=== PATIENT | male | born 1935 | race Caucasian/White ===

== ENCOUNTER → 2016-08-27 | Outpatient (CLI) | payer MEDICARE, BC ==
[~2016-08-27] MED LIST: AMLO5 PO; ARIC5TAB PO; COUM10TA PO; DONE10TA7 PO; FURO1TAB62 PO; HYZA50TA2 PO; IRON; KCL; LORA-392 PO; NYST500000 PO; SPIR25 PO; TAMS0.4C4 PO; ZETI10TA5 PO; [UNRECOGNIZED DRUG - CODE] SQ
[2016-08-27 09:10] LABS: HEMATOCRIT 35.6 % (39.0-51.0); MEAN CELL VOLUME 87.7 FL (80.0-100.0); MEAN CORPUSCULAR HEMOGLOBIN 30.4 PG (27.0-34.0); MEAN CORPUSCULAR HGB CONC 34.7 % (32.0-36.0); PLATELET COUNT 176 TH/MM3 (150-450); RED BLOOD COUNT 4.06 MIL/MM3 (4.50-5.90); RED CELL DISTRIBUTION WIDTH 13.9 % (11.6-17.2); REVIEW FLAG FINAL; WHITE BLOOD COUNT 4.8 TH/MM3 (4.0-11.0)
[2016-08-27 09:34] LABS: ALKALINE PHOSPHATASE 74 U/L (45-117); ALT (GPT) 21 U/L (12-78); ANION GAP 7 MEQ/L (5-15); AST (GOT) 24 U/L (15-37); BICARBONATE 30.3 MEQ/L (21.0-32.0); BLOOD UREA NITROGEN 28 MG/DL (7-18); CHLORIDE 100 MEQ/L (98-107); GLOMERULAR FILTRATION RATE 57 ML/MIN (>89); GLUCOSE,FASTING 100 MG/DL (74-99); HDL CHOLESTEROL 53.7 MG/DL (40.0-60.0); LDL CHOLESTEROL 96 MG/DL (0-99); POTASSIUM 4.7 MEQ/L (3.5-5.1); SODIUM (NA) 137 MEQ/L (136-145); TOTAL BILIRUBIN ADULT 0.6 MG/DL (0.2-1.0)
[2016-08-27 21:30] LABS: HEMOGLOBIN A1a 0.7 %; HEMOGLOBIN A1b 1.6 %; HEMOGLOBIN Ao 86.4 %; HEMOGLOBIN LA1C 1.8 %; HEMOGLOBIN P3 5.1 %
== END ==
LOC: PLAB 07:06
PROVIDERS: ATTEND Urology
DX: C61 Malignant neoplasm of prostate (principal); I10 Essential (primary) hypertension; I50.20 Unspecified systolic (congestive) heart failure; F03.90 Unspecified dementia, unspecified severity, without behavioral disturbance, psychotic disturbance, mood disturbance, and anxiety; Z95.2 Presence of prosthetic heart valve
CPT/HCPCS: 36415; 80053; 80061; 83036; 84153; 85027

== ENCOUNTER → 2016-11-12 | Outpatient (CLI) | payer MEDICARE, BC ==
[~2016-11-12] MED LIST changes: -AMLO5 PO; -ARIC5TAB PO
== END ==
LOC: PLAB 13:51
PROVIDERS: ATTEND Family Medicine
DX: F03.90 Unspecified dementia, unspecified severity, without behavioral disturbance, psychotic disturbance, mood disturbance, and anxiety (principal)
CPT/HCPCS: 36415; 82607; 84443

== ENCOUNTER → 2016-12-29 | Outpatient (CLI) | payer MEDICARE, BC | LOC: PLAB 09:32 | PROVIDERS: ATTEND Urology | DX: C61 Malignant neoplasm of prostate (principal) | CPT/HCPCS: 36415; 84153 ==

== ENCOUNTER → 2017-02-24 | Outpatient (CLI) | payer MEDICARE, BC ==
[~2017-02-24] MED LIST changes: +DONE5TAB7 PO
[2017-02-24 12:27] LABS: HEMATOCRIT 34.3 % (39.0-51.0); MEAN CELL VOLUME 89.4 FL (80.0-100.0); MEAN CORPUSCULAR HEMOGLOBIN 30.2 PG (27.0-34.0); MEAN CORPUSCULAR HGB CONC 33.8 % (32.0-36.0); PLATELET COUNT 195 TH/MM3 (150-450); RED BLOOD COUNT 3.83 MIL/MM3 (4.50-5.90); RED CELL DISTRIBUTION WIDTH 13.7 % (11.6-17.2); REVIEW FLAG FINAL; WHITE BLOOD COUNT 5.8 TH/MM3 (4.0-11.0)
[2017-02-24 13:09] LABS: ANION GAP 6 MEQ/L (5-15); AST (GOT) 26 U/L (15-37); BICARBONATE 30.7 MEQ/L (21.0-32.0); BLOOD UREA NITROGEN 23 MG/DL (7-18); CHLORIDE 100 MEQ/L (98-107); GLOMERULAR FILTRATION RATE 62 ML/MIN (>89); POTASSIUM 4.5 MEQ/L (3.5-5.1); SODIUM (NA) 137 MEQ/L (136-145)
[2017-02-24 13:28] LABS: ALKALINE PHOSPHATASE 66 U/L (45-117); ALT (GPT) 23 U/L (12-78); GLUCOSE,FASTING 91 MG/DL (74-99); LDL CHOLESTEROL 92 MG/DL (0-99); TOTAL BILIRUBIN ADULT 0.5 MG/DL (0.2-1.0)
== END ==
LOC: PLAB 08:05
PROVIDERS: ATTEND Family Medicine
DX: I10 Essential (primary) hypertension (principal); E78.5 Hyperlipidemia, unspecified; F03.90 Unspecified dementia, unspecified severity, without behavioral disturbance, psychotic disturbance, mood disturbance, and anxiety; I95.9 Hypotension, unspecified
CPT/HCPCS: 36415; 80053; 80061; 85027

== ENCOUNTER → 2017-03-10 | Outpatient (CLI) | payer MEDICARE, BC ==
[~2017-03-10] MED LIST changes: -DONE10TA7 PO; -HYZA50TA2 PO; -SPIR25 PO
== END ==
LOC: PLAB 13:28
PROVIDERS: ATTEND Urology
DX: C61 Malignant neoplasm of prostate (principal)
CPT/HCPCS: 36415; 84153

== ENCOUNTER → 2017-03-20 | Outpatient (CLI) | payer MEDICARE, BC ==
[2017-03-20 13:57] LABS: BICARBONATE 31.8 MEQ/L (21.0-32.0); POTASSIUM 4.8 MEQ/L (3.5-5.1)
== END ==
LOC: PLAB 09:26
PROVIDERS: ATTEND Internal Medicine Interventional Cardiology
DX: I50.9 Heart failure, unspecified (principal)
CPT/HCPCS: 36415; 80048

== ENCOUNTER → 2017-05-19 | Outpatient (CLI) | payer MEDICARE, BC ==
[2017-05-19 17:33] LABS: BICARBONATE 30.1 MEQ/L (21.0-32.0); CALCIUM 8.7 MG/DL (8.5-10.1); CREATININE 1.04 MG/DL (0.60-1.30)
== END ==
LOC: PLAB 15:14
PROVIDERS: ATTEND Internal Medicine Interventional Cardiology
DX: R60.9 Edema, unspecified (principal)
CPT/HCPCS: 36415; 80048

== ENCOUNTER 2017-07-06 14:33 | Observation (INO) | payer MEDICARE, BC ==
[~2017-07-06] VITALS: Ht 185.4 cm; Wt 95.9 kg
[~2017-07-06 14:33] MED LIST changes: +EZET10 PO; -ZETI10TA5 PO
[2017-07-06 14:35] VITALS: BP 159/70; PULSE 62; RESP 16; TEMP 97.9; O2SAT 96
[2017-07-06 15:27] LABS: AUTOMATED NEUTROPHIL # 5.3 TH/MM3 (1.8-7.7); BASOPHIL % 0.7 % (0.0-2.0); EOSINOPHIL # 0.2 TH/MM3 (0-0.4); EOSINOPHIL % 2.3 % (0.0-4.0); HEMATOCRIT 37.7 % (39.0-51.0); HEMO FLAGS DIFF FINAL; LYMPH % 9.2 % (9.0-44.0); LYMPHOCYTE # 0.6 TH/MM3 (1.0-4.8); MEAN CELL VOLUME 88.6 FL (80.0-100.0); MEAN CORPUSCULAR HEMOGLOBIN 29.8 PG (27.0-34.0); MEAN CORPUSCULAR HGB CONC 33.7 % (32.0-36.0); MONO % 9.8 % (0.0-8.0); PLATELET COUNT 188 TH/MM3 (150-450); RED BLOOD COUNT 4.26 MIL/MM3 (4.50-5.90); RED CELL DISTRIBUTION WIDTH 13.8 % (11.6-17.2); WHITE BLOOD COUNT 6.8 TH/MM3 (4.0-11.0)
[2017-07-06 15:30] LABS: PROTHROMBIN TIME - PATIENT 30.5 SEC (9.8-11.6)
[2017-07-06 15:58] LABS: ANION GAP 5 MEQ/L (5-15); BICARBONATE 28.7 MEQ/L (21.0-32.0); BLOOD UREA NITROGEN 24 MG/DL (7-18); CHLORIDE 100 MEQ/L (98-107); GLOMERULAR FILTRATION RATE 63 ML/MIN (>89); MAGNESIUM 2.4 MG/DL (1.5-2.5); SODIUM (NA) 134 MEQ/L (136-145)
[2017-07-06 16:06] LABS: CREATINE KINASE 41 U/L (39-308)
--- NOTE | 2017-07-06 16:32 | RADRPT ---
EXAM DATE/TIME: 07/06/2017 15:23 [place] COMPARISON: No previous studies available for comparison. INDICATIONS : Chest pain. MEDICAL HISTORY : Congestive heart failure. Hypertension SURGICAL HISTORY : aortic valve ENCOUNTER: Initial ACUITY: 1 day PAIN SCORE: 7/10 LOCATION: Bilateral chest FINDINGS: PA and lateral views of the chest demonstrate the lungs to be symmetrically aerated without evidence of mass, infiltrate or effusion. The cardiomediastinal contours are unremarkable. Osseous structure s are intact. Median sternotomy wires. Prosthetic heart bowel. Anchoring devices overlying the right humeral head. CONCLUSION: No acute disease. Finesse Victor Jr., MD on July 06, 2017 at 16:29 Board Certified Radiologist. This report was verified electronically.
[2017-07-06 16:52] VITALS: BP 150/70; PULSE 55; RESP 18; O2SAT 99
--- NOTE | 2017-07-06 17:21 | PD ---
HPI Chief Complaint: Chest Pain Time Seen by Provider: 16:47 Travel History International Travel<30 days: No Contact w/Intl Traveler<30days: No Traveled to known affect area: No History of Present Illness HPI 81-year-old male with history of aortic valve replacement 20 years ago and CHF presents to the emergency room for evaluation of left-sided chest pain for the past several hours. He has a history of dementia and provides much of his history. He first complained to his of chest pain around 11:00 today. Reports pain is constant but occasionally worsens. No radiation of symptoms. No associated shortness of breath, nausea, vomiting. He has a difficult time describing pain because history of dementia. The patient did exercise this morning for 1 hour. Denies worsening of symptoms with inspiration. He is on warfarin. He last went to see his cathode washer's, Dr. Tomlin, 8 days ago during which time his Lasix were increased from 20-40 mg daily. Patient's called the cathode washer office today to discuss chest pain symptoms and they're going to come to the emergency room for evaluation. PFSH Past Medical History Hx Anticoagulant Therapy: Yes Arthritis: Yes (Right shoulder) Asthma: No Autoimmune Disease: No Anxiety: No Depression: No Heart Rhythm Problems: No Cancer: Yes (Prostate) Cardiovascular Problems: Yes (mechanical aortic valve, CHF) High Cholesterol: No Chemotherapy: Yes (Has new implant every 90 days) Chest Pain: No Congestive Heart Failure: Yes COPD: No Cerebrovascular Accident: No Diabetes: No Diminished Hearing: No Endocrine: No Gastrointestinal Disorders: No GERD: No Genitourinary: No Headaches: No Hiatal Hernia: No Hypertension: Yes Immune Disorder: No Implanted Vascular Access Dvce: Yes Kidney Stones: No Musculoskeletal: No Neurologic: Yes (GBS) Psychiatric: No Reproductive: No Respiratory: No Immunizations Current: Yes Migraines: No Radiation Therapy: No Renal Failure: No Seizures: No Sickle Cell Disease: No Sleep Apnea: No Thyroid Disease: No Ulcer: No Tetanus Vaccination: > 5 Years Influenza Vaccination: No Past Surgical History Abdominal Surgery: No AICD: No Arteriovenous Shunt: No Body Medical Devices: Mechanical aortic valve Cardiac Surgery: Yes (Mechanical aortic valve) Ear Surgery: No Endocrine Surgery: No Eye Surgery: No Genitourinary Surgery: Yes (SCOPE) Gynecologic Surgery: No Insulin Pump: No Joint Replacement: No Neurologic Surgery: No Oral Surgery: No Pacemaker: No Thoracic Surgery: No Other Surgery: Yes Social History Alcohol Use: Yes (Rarely) Tobacco Use: No (Quit 1995) Substance Use: No Allergies-Medications (Allergen,Severity, Reaction): Coded Allergies: *MDRO Multi-Drug Resistant Organism (Verified Allergy, Unknown, 07/06/17) 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 Cleared per infection control. Reported Meds & Prescriptions Reported Meds & Active Scripts Active Donepezil 5 Mg Tab 5 Mg PO HS Ativan (Lorazepam) 0.5 Mg Tab 0.5 Mg PO ONCE PRN Reported Coumadin (Warfarin) 10 Mg Tab 10 Mg PO DAILY [iron27] Zetia (Ezetimibe) 10 Mg Tab 10 Mg PO DAILY Zoladex Inj (Goserelin Acetate) 10.8 Mg Impl 10.8 Mg SQ Q12W Administer into upper abdomen [Kcl] 10 Meq DAILY Lasix (Furosemide) 20 Mg Tab 20 Mg PO DAILY Tamsulosin (Tamsulosin HCl) 0.4 Mg Cap 0.4 Mg PO HS Review of Systems Except as stated in HPI: all other systems reviewed are Neg Physical Exam Narrative GENERAL: Well-nourished, well-developed male in no acute distress. Afebrile. SKIN: Focused skin assessment warm/dry. HEAD: Normocephalic. EYES: No scleral icterus. No injection or drainage. NECK: Supple, trachea midline. No JVD or lymphadenopathy. CARDIOVASCULAR: Regular rate and rhythm without murmurs, gallops, or rubs. RESPIRATORY: Breath sounds equal bilaterally. No accessory muscle use. GASTROINTESTINAL: Abdomen soft, non-tender, nondistended. Data Data Last Documented VS Vital Signs Date Time Temp Pulse Resp B/P (MAP) Pulse Ox O2 Delivery O2 Flow Rate FiO2 07/06/17 16:52 55 18 150/70 (96) 99 Room Air 07/06/17 14:35 97.9 Orders Orders Electrocardiogram (07/06/17 14:44) Basic Metabolic Panel (Bmp) (07/06/17 14:44) B-Type Natriuretic Peptide (07/06/17 14:44) Ckmb (Isoenzyme) Profile (07/06/17 14:44) Complete Blood Count With Diff (07/06/17 14:44) Magnesium (Mg) (07/06/17 14:44) Prothrombin Time / Inr (Pt) (07/06/17 14:44) Act Partial Throm Time (Ptt) (07/06/17 14:44) Troponin I (07/06/17 14:44) Chest, Pa & Lat (07/06/17 14:44) Admit Order (Ed Use Only) (07/06/17 ) Assignment Clerk / Telemetry [email or web address] (07/06/17 18:28) Vital Signs (Adult) Q4H (07/06/17 18:28) Diet Heart Healthy (07/06/17 Dinner) Activity Oob With Assistance (07/06/17 18:28) Notify Dr: Other (07/06/17 18:28) Labs Laboratory Tests Test 07/06/17 15:00 White Blood Count 6.8 TH/MM3 Red Blood Count 4.26 MIL/MM3 Hemoglobin 12.7 GM/DL Hematocrit 37.7 % Mean Corpuscular Volume 88.6 FL Mean Corpuscular Hemoglobin 29.8 PG Mean Corpuscular Hemoglobin Concent 33.7 % Red Cell Distribution Width 13.8 % Platelet Count 188 TH/MM3 Mean Platelet Volume 8.0 FL Neutrophils (%) (Auto) 78.0 % Lymphocytes (%) (Auto) 9.2 % Monocytes (%) (Auto) 9.8 % Eosinophils (%) (Auto) 2.3 % Basophils (%) (Auto) 0.7 % Neutrophils # (Auto) 5.3 TH/MM3 Lymphocytes # (Auto) 0.6 TH/MM3 Monocytes # (Auto) 0.7 TH/MM3 Eosinophils # (Auto) 0.2 TH/MM3 Basophils # (Auto) 0.0 TH/MM3 CBC Comment DIFF FINAL Differential Comment Prothrombin Time 30.5 SEC Prothromb Time International Ratio 3.0 RATIO Activated Partial Thromboplast Time 38.0 SEC Blood Urea Nitrogen 24 MG/DL Creatinine 1.11 MG/DL Random Glucose 89 MG/DL Calcium Level 8.5 MG/DL Magnesium Level 2.4 MG/DL Sodium Level 134 MEQ/L Potassium Level 4.0 MEQ/L Chloride Level 100 MEQ/L Carbon Dioxide Level 28.7 MEQ/L Anion Gap 5 MEQ/L Estimat Glomerular Filtration Rate 63 ML/MIN Total Creatine Kinase 41 U/L Troponin I LESS THAN 0.02 NG/ML B-Type Natriuretic Peptide 32 PG/ML MDM Medical Decision Making Medical Screen Exam Complete: Yes Emergency Medical Condition: Yes Medical Record Reviewed: Yes Differential Diagnosis ACS, pneumonia, unstable angina, pneumothorax, aortic valve dysfunction Narrative Course 81-year-old male with history of dementia, prostate cancer, aortic valve replacement, AAA, and CHF presents to the emergency room for evaluation of left- sided chest pain that started earlier today. Pain is constant without radiation or associated symptoms. Patient has history of dementia and provides most of the history. He has difficulty explaining quality of pain. Not worse with inspiration. Chest is nontender to palpation. Vital signs stable. Patient resting comfortably in bed. Chest x-ray is negative. EKG shows sinus bradycardia with a rate of 57 bpm. Signed off by my attending physician. CBC is unremarkable. BMP is essentially unremarkable troponin is less than 0.02. BNP is 32. I spoke to the patient's cathode washer, Dr. Tomlin , who recommends admission to the hospitalist service with consultation to his service. I spoke to Dr. Vinson who agrees to admit this patient to his service. Physician Communication Physician Communication I spoke to Dr. Tomlin who recommends admission to medical service with consultation to him. Diagnosis Primary Impression: Chest pain Qualified Codes: R07.9 - Chest pain, unspecified Admitting Information Admitting Physician Requests: Admit Condition: Stable Anita Saunders Jul 06, 2017 17:21
[2017-07-06] MEDS ORDERED: ACETAMINOPHEN 500 MG CPLT PO PRN (19:00)
[2017-07-06] MEDS ORDERED: SODIUM CHLORIDE 0.9% FLUSH 10 ML FLUSH IV FLUSH PRN (19:00)
[2017-07-06] MEDS ORDERED: ONDANSETRON HCL 4 MG/2 ML VIAL IV PUSH PRN (19:00)
--- NOTE | 2017-07-06 21:11 | MB ---
cc: ASHLEE TOMLIN DATE OF CONSULTATION 07/06/2017 HISTORY Mr. Larkin is an 81-year-old white male with a history of congestive heart failure, diastolic dysfunction, aortic valve replacement using a mechanical valve. After his picked him up from a restaurant he was complaining of right-sided chest discomfort of moderate severity. She brought him to the emergency room. He is now feeling better. He denies any shortness of breath. PAST MEDICAL HISTORY Positive for: 1. Congestive heart failure. 2. Diastolic mechanical aortic valve replacement. 3. History of hypertension. 4. Prostate cancer. 5. Degenerative joint disease both shoulders. 6. Abdominal aortic aneurysm 3.1 cm. 7. Hypertension. 8. Prostate cancer. 9. 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 11. Dyslipidemia. MEDICATIONS At home include: 1. Coumadin 10 milligrams five days and 7.5 milligrams two days. 2. Zetia. 3. Zoladex. 4. Chlor-Con. 5. Furosemide. 6. Multivitamin. 7. Iron. 8. Aricept. 9. Flomax. 10. Ativan. ALLERGIES None. SOCIAL HISTORY The patient does not smoke but used smoke in the past. He does not drink alcohol. He is and accompanied by his . FAMILY HISTORY Negative for heart disease. REVIEW OF SYSTEMS Otherwise negative. PHYSICAL EXAMINATION VITAL SIGNS: Blood pressure 150/70, pulse 55 and regular. HEENT: Negative. 2+ carotid upstrokes. No bruits. LUNGS: Clear. CARDIOVASCULAR: Heart regular with a 1/6 systolic ejection murmur. Obion aortic valve clicks. No gallop or rub. ABDOMEN: Soft. No bruits. EXTREMITIES: With mild edema, venous varicosities. 1-2+ distal pulses. NEUROLOGIC: Examination grossly nonfocal. EKG was reviewed and showed sinus bradycardia and mild nonspecific ST changes. LABORATORY DATA Hemoglobin 12.7. Potassium 4.0, creatinine 1.1. CK 41. Troponin less than 0.02. BNP 32. DIAGNOSES 1. Atypical chest pain. 2. Chronic diastolic congestive heart failure, class I. 3. Status post aortic valve replacement using mechanical valve. 4. Hypertension. 5. Dyslipidemia. 6. Abdominal aortic aneurysm. 7. Dementia. DISPOSITION Mr. Larkin presented with atypical right-sided chest discomfort. He will be monitored overnight with serial enzymes and EKGs. If he is ruled out for myocardial infarction, he will be discharged home tomorrow and I will see him back for followup in our office after discharge. We will continue his current medical program including anticoagulation with warfarin. His INR today was 2.8. The plan was discussed with the patient and his . Ashlee Tomlin MD OSusan/KK /6:30 PM /8:52 PM MTDMichael
[2017-07-06] MEDS: SODIUM CHLORIDE 0.9% FLUSH 10 ML FLUSH IV FLUSH SCH (21:15)
[2017-07-06 21:45] VITALS: BP 161/74; PULSE 68; RESP 18; TEMP 98; O2SAT 97
[2017-07-06 21:59] VITALS: PULSE 75
[2017-07-06 22:52] LABS: CREATINE KINASE 113 U/L (39-308)
[2017-07-06 23:06] LABS: CKMB 0.7 NG/ML (0.5-3.6)
[2017-07-06 23:30] VITALS: O2SAT 98
[2017-07-07] MEDS ORDERED: LORazepam 0.5 MG TAB PO PRN (02:00)
--- NOTE | 2017-07-07 02:04 | HHI.HP ---
[facility]ician No Primary Care Physician Admission Diagnosis chest pain Diagnoses: Travel History International Travel<30 Days: No Contact w/Intl Traveler <30 Da: No Traveled to Known Affected Are: No History of Present Illness 81-year-old male with a past medical history of CHF, diastolic dysfunction, aortic valve replacement, hypertension, prostate cancer and hyperlipidemia presents to the emergency department for right-sided chest pain. He is followed by Dr. Tomlin. The patient was reportedly complaining of right-sided chest discomfort of moderate severity and was brought to the emergency department for further evaluation. At the time of our interview, the patient has no complaints. He is confused but has dementia at baseline. He is able to tell me that he is in the state of [place] and his full name. He does not know time/date or his date of . He is not sure why he is in the hospital. Review of Systems Denies fever or chills Denies blurry vision, otorrhea, rhinorrhea Denies sore throat and cough No chest pain, palpitations, shortness of breath No abdominal pain Denies constipation/diarrhea/nausea/vomiting Denies muscle pain/weakness No rashes Past Family Social History Past Medical History Congestive heart failure Aortic valve replacement Hypertension Prostate cancer Degenerative joint disease of both shoulders AAA 3.1 cm Hyperlipidemia Past Surgical History Aortic valve replacement Reported Medications Reported Meds & Active Scripts Active Donepezil 5 Mg Tab 5 Mg PO HS Ativan (Lorazepam) 0.5 Mg Tab 0.5 Mg PO ONCE PRN Reported Coumadin (Warfarin) 10 Mg Tab 10 Mg PO DAILY [iron27] Zetia (Ezetimibe) 10 Mg Tab 10 Mg PO DAILY Zoladex Inj (Goserelin Acetate) 10.8 Mg Impl 10.8 Mg SQ Q12W Administer into upper abdomen [Kcl] 10 Meq DAILY Lasix (Furosemide) 20 Mg Tab 20 Mg PO DAILY Tamsulosin (Tamsulosin HCl) 0.4 Mg Cap 0.4 Mg PO HS Allergies: Coded Allergies: *MDRO Multi-Drug Resistant Organism (Verified Allergy, Unknown, 07/06/17) 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 Cleared per infection control. Family History No family history of coronary artery disease. Social History Remote history of smoking. No alcohol or illicit drugs. Physical Exam Vital Signs Vital Signs Date Time Temp Pulse Resp B/P (MAP) Pulse Ox O2 Delivery O2 Flow Rate FiO2 07/06/17 23:30 98 07/06/17 21:45 98.0 68 18 161/74 (103) 97 07/06/17 16:52 55 18 150/70 (96) 99 Room Air 07/06/17 16:46 51 18 96 Room Air 07/06/17 14:35 97.9 62 16 159/70 (99) 96 Physical Exam GENERAL: male wandering the halls SKIN: No rashes, ecchymoses or lesions. Cool and dry. HEAD: Atraumatic. Normocephalic. No temporal or scalp tenderness. EYES: Pupils equal round and reactive. Extraocular motions intact. No scleral icterus. No injection or drainage. ENT: Nose without bleeding, purulent drainage or septal hematoma. Throat without erythema, tonsillar hypertrophy or exudate. Uvula midline. Airway patent. NECK: Trachea midline. No JVD or lymphadenopathy. Supple, nontender, no meningeal signs. CARDIOVASCULAR: Regular rate and rhythm. 1/6 RAMONA RESPIRATORY: Clear to auscultation. Breath sounds equal bilaterally. No wheezes , rales, or rhonchi. GASTROINTESTINAL: Abdomen soft, non-tender, nondistended. No hepato-splenomegaly , or palpable masses. No guarding. MUSCULOSKELETAL: 2+ pitting lower extremity edema to the ankle. No calf tenderness. Negative Homans sign bilaterally. NEUROLOGICAL: Awake and alert. Cranial nerves II through XII intact. Motor and sensory grossly within normal limits. Normal speech. Oriented to state and self only. Laboratory Laboratory Tests Test 07/06/17 15:00 07/06/17 19:17 07/06/17 21:30 White Blood Count 6.8 Red Blood Count 4.26 Hemoglobin 12.7 Hematocrit 37.7 Mean Corpuscular Volume 88.6 Mean Corpuscular Hemoglobin 29.8 Mean Corpuscular Hemoglobin Concent 33.7 Red Cell Distribution Width 13.8 Platelet Count 188 Mean Platelet Volume 8.0 Neutrophils (%) (Auto) 78.0 Lymphocytes (%) (Auto) 9.2 Monocytes (%) (Auto) 9.8 Eosinophils (%) (Auto) 2.3 Basophils (%) (Auto) 0.7 Neutrophils # (Auto) 5.3 Lymphocytes # (Auto) 0.6 Monocytes # (Auto) 0.7 Eosinophils # (Auto) 0.2 Basophils # (Auto) 0.0 CBC Comment DIFF FINAL Differential Comment Prothrombin Time 30.5 Prothromb Time International Ratio 3.0 Activated Partial Thromboplast Time 38.0 Blood Urea Nitrogen 24 Creatinine 1.11 Random Glucose 89 Calcium Level 8.5 Magnesium Level 2.4 Sodium Level 134 Potassium Level 4.0 Chloride Level 100 Carbon Dioxide Level 28.7 Anion Gap 5 Estimat Glomerular Filtration Rate 63 Total Creatine Kinase 41 41 113 Troponin I LESS THAN 0.02 0.02 0.02 B-Type Natriuretic Peptide 32 Creatine Kinase MB 0.7 Result Diagram: 07/06/17 1500 07/06/17 1500 Caprini VTE Risk Assessment Caprini VTE Risk Assessment: Mod/High Risk (score >= 2) Caprini Risk Assessment Model Point Value = 1 Point Value = 2 Point Value = 3 Point Value = 5 Age 41-60 Minor surgery BMI > 25 kg/m2 Swollen legs Varicose veins or History of unexplained or recurrent spontaneous Oral contraceptives or hormone replacement Sepsis (< 1 month) Serious lung disease, including pneumonia (< 1 month) Abnormal pulmonary function Acute myocardial infarction Congestive heart failure (< 1 month) History of inflammatory bowel disease Medical patient at bed rest Age 61-74 Arthroscopic surgery Major open surgery (> 45 min) Laparoscopic surgery (> 45 min) Malignancy Confined to bed (> 72 hours) Immobilizing plaster cast Central venous access Age >= 75 History of VTE Family history of VTE Factor V Leiden Prothrombin [id number] Lupus anticoagulant Anticardiolipin antibodies Elevated serum homocysteine Heparin-induced thrombocytopenia Other congenital or acquired thrombophilia Stroke (< 1 month) Elective arthroplasty Hip, pelvis, or leg fracture Acute spinal cord injury (< 1 month) Prophylaxis Regimen Total Risk Factor Score Risk Level Prophylaxis Regimen 0-1 Low Early ambulation 2 Moderate Order ONE of the following: *Sequential Compression Device (SCD) *Heparin 5000 units SQ BID 3-4 Higher Order ONE of the following medications: *Heparin 5000 units SQ TID *Enoxaparin/Lovenox 40 mg SQ daily (WT < 150 kg, CrCl > 30 mL/min) *Enoxaparin/Lovenox 30 mg SQ daily (WT < 150 kg, CrCl > 10-29 mL/min) *Enoxaparin/Lovenox 30 mg SQ BID (WT < 150 kg, CrCl > 30 mL/min) AND/OR *Sequential Compression Device (SCD) 5 or more Highest Order ONE of the following medications: *Heparin 5000 units SQ TID (Preferred with Epidurals) *Enoxaparin/Lovenox 40 mg SQ daily (WT < 150 kg, CrCl > 30 mL/min) *Enoxaparin/Lovenox 30 mg SQ daily (WT < 150 kg, CrCl > 10-29 mL/min) *Enoxaparin/Lovenox 30 mg SQ BID (WT < 150 kg, CrCl > 30 mL/min) AND *Sequential Compression Device (SCD) Assessment and Plan Assessment and Plan Assessment/plan: 1. Atypical chest pain ACS rule out negative Patient seen by Dr. Tomlin, will follow-up in the office after discharge which is anticipated to be later today Resolved 2. Dementia Continue home medications 3. CHF Continue home Lasix Follow-up with Dr. Tomlin as above 4. Artificial aortic valve INR therapeutic at 3.0 Continue Coumadin 5. Hyperlipidemia Continue Zetia FEN Heart healthy diet Electrolytes: Monitor replete when necessary Coumadin Lisha Maldonado MD Jul 07, 2017 02:04
[2017-07-07 05:30] VITALS: BP 158/84; PULSE 74; RESP 18; TEMP 98.8; O2SAT 94
[2017-07-07 06:16] LABS: AUTOMATED NEUTROPHIL # 5.4 TH/MM3 (1.8-7.7); BASOPHIL % 0.7 % (0.0-2.0); EOSINOPHIL # 0.1 TH/MM3 (0-0.4); EOSINOPHIL % 2.1 % (0.0-4.0); HEMATOCRIT 35.6 % (39.0-51.0); HEMO FLAGS DIFF FINAL; LYMPH % 9.2 % (9.0-44.0); LYMPHOCYTE # 0.6 TH/MM3 (1.0-4.8); MEAN CELL VOLUME 88.8 FL (80.0-100.0); MEAN CORPUSCULAR HGB CONC 34.9 % (32.0-36.0); MONO % 9.6 % (0.0-8.0); NEUT % 78.4 % (16.0-70.0); PLATELET COUNT 175 TH/MM3 (150-450); RED BLOOD COUNT 4.01 MIL/MM3 (4.50-5.90); RED CELL DISTRIBUTION WIDTH 13.7 % (11.6-17.2); WHITE BLOOD COUNT 6.8 TH/MM3 (4.0-11.0)
[2017-07-07 06:45] LABS: BICARBONATE 25.8 MEQ/L (21.0-32.0); POTASSIUM 3.7 MEQ/L (3.5-5.1)
[2017-07-07 07:11] VITALS: BP 133/71; PULSE 62; RESP 18; TEMP 97.6; O2SAT 97
[2017-07-07 07:32] VITALS: PULSE 65
[2017-07-07] MEDS ORDERED: EZETIMIBE 10 MG TAB PO SCH (09:00)
[2017-07-07] MEDS ORDERED: FUROSEMIDE 20 MG TAB PO SCH (09:00)
[2017-07-07] MEDS: SODIUM CHLORIDE 0.9% FLUSH 10 ML FLUSH IV FLUSH SCH (09:23)
--- NOTE | 2017-07-07 11:22 | HHI.PR ---
Subjective Remarks On patient with atypical chest pain. Patient seen and examined. Patient with severe dementia. No family at the bedside. He denies any dizziness or lightheadedness. He denies any complaints of chest pain or shortness of breath. Denies any palpitations. Denies any nausea, vomiting or abdominal pain. Objective Vitals Vital Signs Date Time Temp Pulse Resp B/P (MAP) Pulse Ox O2 Delivery O2 Flow Rate FiO2 07/07/17 07:32 65 07/07/17 07:11 97.6 62 18 133/71 (91) 97 07/07/17 05:30 98.8 74 18 158/84 (108) 94 07/06/17 23:30 98 07/06/17 21:59 75 07/06/17 21:45 98.0 68 18 161/74 (103) 97 07/06/17 16:52 55 18 150/70 (96) 99 Room Air 07/06/17 16:46 51 18 96 Room Air 07/06/17 14:35 97.9 62 16 159/70 (99) 96 Result Diagram: 07/07/17 0411 07/07/17 0411 Imaging Last Impressions Chest X-Ray 07/06/17 1444 Signed Impressions: Service Date/Time: Thursday, July 06, 2017 15:23 - CONCLUSION: No acute disease. Finesse Victor Jr., MD Objective Remarks GENERAL: Well-developed well-nourished elderly male. Confused. SKIN: Warm and dry. Multiple areas of ecchymosis, fragile skin. HEAD: Atraumatic. Normocephalic. EYES: Extraocular motions intact. No scleral icterus. No injection or drainage. ENT: Nose without bleeding or purulent drainage. Airway patent. NECK: Trachea midline. CARDIOVASCULAR: Regular rate and rhythm. 1/6 RAMONA RESPIRATORY: Clear to auscultation. Breath sounds equal bilaterally. No wheezes , rales, or rhonchi. GASTROINTESTINAL: Abdomen soft, non-tender, nondistended. No hepato-splenomegaly , or palpable masses. No guarding. MUSCULOSKELETAL: 1+ pitting lower extremity edema to the ankle. No calf tenderness. NEUROLOGICAL: Awake and alert. Able to move all extremities spontaneously. No focal neurologic findings appreciated. Normal speech. Oriented to state and self only. Medications and IVs Current Medications Medications (Trade) Dose Ordered Sig/Patrice Route Start Time Stop Time Status Last Admin (NS Flush) 2 ml UNSCH PRN IV FLUSH 07/06/17 19:00 (NS Flush) 2 ml BID IV FLUSH 07/06/17 21:00 07/07/17 09:23 (Tylenol) 500 mg Q4H PRN PO 07/06/17 19:00 (Zofran Inj) 4 mg Q6H PRN IV PUSH 07/06/17 19:00 (Aricept) 5 mg HS PO 07/07/17 21:00 (Zetia) 10 mg DAILY PO 07/07/17 09:00 07/07/17 09:22 (Lasix) 20 mg DAILY PO 07/07/17 09:00 07/07/17 09:23 (Flomax) 0.4 mg HS PO 07/07/17 21:00 (Coumadin) 10 mg DAILY@1600 PO 07/07/17 16:00 (Coumadin Booklet) 1 ONCE ONCE .XX 07/07/17 16:00 07/07/17 16:01 A/P Assessment and Plan 1. Atypical chest pain ACS rule out negative Patient cleared for discharge by Dr. Tomlin Resolved 2. Dementia Patient at baseline per Continue home medications 3. CHF, not in acute exacerbation Continue home Lasix Follow-up with Dr. Tomlin as above 4. Artificial aortic valve INR therapeutic at 3.0 Continue Coumadin. 5. Hyperlipidemia Continue Zetia FEN Heart healthy diet Electrolytes: Monitor replete when necessary Coumadin Discharge patient to home Condition on discharge: Improved Heart healthy Diet as tolerated Ad Angela activity Rx written: resume home medications Follow-up with primary care physician and solution designer Latesha Lopez Jul 07, 2017 11:22
--- NOTE | 2017-07-07 11:25 | HHI.DCPOC ---
Discharge Care Plan Diagnosis: (1) Chest pain (2) Dementia (3) Anemia (4) Diastolic CHF (5) Hyperlipidemia (6) Hx of aortic valve replacement, mechanical Goals to Promote Your Health * To prevent worsening of your condition and complications * To maintain your health at the optimal level Directions to Meet Your Goals Please follow-up with Dr. Tomlin per his recommendations Take your medications as prescribed Follow your dietary instruction Follow activity as directed Keep your appointments as scheduled Take your immunizations and boosters as scheduled If your symptoms worsen call your PCP, if no PCP go to Urgent Care Center or Emergency Room Smoking is Dangerous to Your Health. Avoid second hand smoke Call the 24-hour hour crisis hotline for domestic abuse at Latesha Chowdhury Jul 07, 2017 11:25
[2017-07-07 11:29] VITALS: BP 128/65; PULSE 55; RESP 18; TEMP 98; O2SAT 94
[2017-07-07 12:19] LABS: INTERNATIONAL NORMALIZED RATIO 2.5 RATIO; PROTHROMBIN TIME - PATIENT 24.8 SEC (9.8-11.6)
--- NOTE | 2017-07-07 13:01 | EKG ---
Date Performed: 07/06/2017 Time Performed: 19:23:15 PTAGE: 81 years EKG: SINUS BRADYCARDIA BORDERLINE ECG PREVIOUS TRACING : 07/06/2017 14.58 Compared to prior tracing no significant change DOCTOR: Brenden Sands Interpretating Date/Time 07/07/2017 12:59:34
--- NOTE | 2017-07-07 13:01 | EKG ---
Date Performed: 07/06/2017 Time Performed: 14:58:35 PTAGE: 81 years EKG: SINUS BRADYCARDIA MODERATE ST DEPRESSION ABNORMAL ECG PREVIOUS TRACING : 10/28/2014 11.35 Compared to prior tracing no significant change DOCTOR: Brenden Sands Interpretating Date/Time 07/07/2017 12:59:53
--- NOTE | 2017-07-07 14:24 | EKG ---
Date Performed: 07/06/2017 Time Performed: 22:20:49 PTAGE: 81 years EKG: Sinus rhythm NONSPECIFIC ST-T CHANGES NORMAL ECG Since PREVIOUS TRACING , no significant change noted PREVIOUS TRACIN07/06/2017 19.23 DOCTOR: Brenden Sands Interpretating Date/Time 07/07/2017 14:22:46
[2017-07-07] MEDS ORDERED: WARFARIN SOD 10 MG TAB PO SCH (16:00)
[2017-07-07] MEDS ORDERED: DONEPEZIL HCL 5 MG TAB PO SCH (21:00)
[2017-07-07] MEDS ORDERED: TAMSULOSIN HCL 0.4 MG CAP PO SCH (21:00)
== END 2017-07-07 12:11 | disposition home or self-care (01) ==
LOC: NEPC 14:33 → NEDA 18:29 → NEPFCDU 19:43
PROVIDERS: ADMIT Family Medicine; ATTEND Family Medicine
DX: R07.89 Other chest pain (principal); F03.90 Unspecified dementia, unspecified severity, without behavioral disturbance, psychotic disturbance, mood disturbance, and anxiety; I11.0 Hypertensive heart disease with heart failure; I50.32 Chronic diastolic (congestive) heart failure; E78.5 Hyperlipidemia, unspecified; I71.4 Abdominal aortic aneurysm, without rupture; D64.9 Anemia, unspecified; R00.1 Bradycardia, unspecified; R94.31 Abnormal electrocardiogram [ECG] [EKG]; M19.011 Primary osteoarthritis, right shoulder; M19.012 Primary osteoarthritis, left shoulder; Z95.2 Presence of prosthetic heart valve; Z79.01 Long term (current) use of anticoagulants; Z85.46 Personal history of malignant neoplasm of prostate; Z87.891 Personal history of nicotine dependence; Z79.899 Other long term (current) drug therapy
CPT/HCPCS: 71020; 80048; 82550; 82552; 83735; 83880; 84484; 85025; 85610; 85730; 93005; 99285; G0378

== ENCOUNTER 2017-09-25 09:49 | Emergency (ER) | payer MEDICARE, BC ==
[~2017-09-25] VITALS: Ht 185.4 cm; Wt 95.6 kg
[~2017-09-25 09:49] MED LIST changes: -NYST500000 PO
[2017-09-25 09:55] VITALS: BP 182/77; PULSE 59; RESP 16; TEMP 97.7; O2SAT 98
[2017-09-25] MEDS ORDERED: SILVER NITR/POTASSIUM NITRATE APPLICATORS TOPICAL ONE (10:15)
[2017-09-25] MEDS ORDERED: LIDOCAINE HCL 1% PF 30 ML VIAL ONE (10:20)
[2017-09-25] MEDS ORDERED: MULT1TAB46 PO (10:30)
[2017-09-25] MEDS ORDERED: [UNRECOGNIZED DRUG - CODE] PO (10:30)
--- NOTE | 2017-09-25 11:31 | PD ---
HPI Chief Complaint: Nosebleed Time Seen by Provider: 10:00 Travel History International Travel<30 days: No Contact w/Intl Traveler<30days: No Traveled to known affect area: No History of Present Illness HPI This is a 81-year-old male who presents the ER complaining of nosebleed for the last few hours. Patient has history of chronic nosebleed that he follows up with ENT although this time was not managed easily by applying pressure on his nose. Patient is on Coumadin although his at the bedside says that his recent INR was 3.2. Patient on Coumadin for valve replacement and his target INR is to be yesterday to 3.5. Denies any black stool no blood in the urine or bleeding anywhere else. No palpitations or any systemic symptoms. PFSH Past Medical History Hx Anticoagulant Therapy: Yes Arthritis: Yes (Right shoulder) Asthma: No Autoimmune Disease: No Anxiety: No Depression: No Heart Rhythm Problems: No Cancer: Yes (Prostate) Cardiovascular Problems: Yes (htn on meds) High Cholesterol: No Chemotherapy: Yes (Has new implant every 90 days) Chest Pain: No Congestive Heart Failure: Yes COPD: No Cerebrovascular Accident: No Diabetes: No Diminished Hearing: No Endocrine: No Gastrointestinal Disorders: No GERD: No Genitourinary: No Headaches: No Hiatal Hernia: No Hypertension: Yes Immune Disorder: No Implanted Vascular Access Dvce: Yes Kidney Stones: No Musculoskeletal: No Neurologic: Yes (GBS) Psychiatric: No Reproductive: No Respiratory: No Immunizations Current: Yes Migraines: No Radiation Therapy: No Renal Failure: No Seizures: No Sickle Cell Disease: No Sleep Apnea: No Thyroid Disease: No Ulcer: No Tetanus Vaccination: > 5 Years Influenza Vaccination: No Past Surgical History Abdominal Surgery: No AICD: No Arteriovenous Shunt: No Body Medical Devices: Mechanical aortic valve Cardiac Surgery: Yes (Mechanical aortic valve) Ear Surgery: No Endocrine Surgery: No Eye Surgery: No Genitourinary Surgery: Yes (SCOPE) Gynecologic Surgery: No Insulin Pump: No Joint Replacement: No Neurologic Surgery: No Oral Surgery: No Pacemaker: No Thoracic Surgery: No Other Surgery: Yes Social History Alcohol Use: No Tobacco Use: No (Quit 1995) Substance Use: No Allergies-Medications (Allergen,Severity, Reaction): Coded Allergies: *MDRO Multi-Drug Resistant Organism (Verified Allergy, Unknown, 09/25/17) 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 Cleared per infection control. Reported Meds & Prescriptions Reported Meds & Active Scripts Active Donepezil 5 Mg Tab 5 Mg PO HS Ativan (Lorazepam) 0.5 Mg Tab 0.5 Mg PO ONCE PRN Reported Vitamin D3 (Cholecalciferol (Vitamin D3)) 5,000 Unit Tab.rapdis 1 Tab PO DAILY Multi Vitamin Daily (Multiple Vitamin) 1 Tab Tab 1 Tab PO DAILY Coumadin (Warfarin) 10 Mg Tab 10 Mg PO DAILY [iron27] Zetia (Ezetimibe) 10 Mg Tab 10 Mg PO DAILY Zoladex Inj (Goserelin Acetate) 10.8 Mg Impl 10.8 Mg SQ Q12W Administer into upper abdomen [Kcl] 10 Meq DAILY Lasix (Furosemide) 20 Mg Tab 40 Mg PO DAILY Tamsulosin (Tamsulosin HCl) 0.4 Mg Cap 0.4 Mg PO HS Review of Systems Except as stated in HPI: all other systems reviewed are Neg Physical Exam Narrative GENERAL: Alert oriented 3 no acute distress SKIN: Focused skin assessment warm/dry. HEAD: Atraumatic. Normocephalic. EYES: Pupils equal and round. No scleral icterus. No injection or drainage. ENT: Small area of bleeding in the right nasal septum anteriorly. Mucous membranes pink and moist. NECK: Trachea midline. No JVD. CARDIOVASCULAR: Regular rate and rhythm. No murmur appreciated. RESPIRATORY: No accessory muscle use. Clear to auscultation. Breath sounds equal bilaterally. GASTROINTESTINAL: Abdomen soft, non-tender, nondistended. Hepatic and splenic margins not palpable. MUSCULOSKELETAL: No obvious deformities. No clubbing. No cyanosis. No edema. NEUROLOGICAL: Awake and alert. No obvious cranial nerve deficits. Motor grossly within normal limits. Normal speech. PSYCHIATRIC: Appropriate mood and affect; insight and judgment normal. Data Data Last Documented VS Vital Signs Date Time Temp Pulse Resp B/P (MAP) Pulse Ox O2 Delivery O2 Flow Rate FiO2 09/25/17 11:45 78 17 191/85 (120) 99 09/25/17 09:55 97.7 Orders Orders Silver Nitrate Applicators (Silver Nitra (09/25/17 10:15) Lidocaine Pf 1% Inj (Xylocaine-Mpf 1% In (09/25/17 10:20) Ed Discharge Order (09/25/17 11:30) [facility] Medical Decision Making Medical Screen Exam Complete: Yes Emergency Medical Condition: Yes Differential Diagnosis Nasal bleeding, malignancy Narrative Course This is an 81-year-old male we will present to the ER complaining of nasal bleeding. On exam there was an area of bleeding on the right nasal septum that was cauterized using silver nitrate and patient tolerated the procedure well. There is no concern for systemic symptoms since there is no bleeding anywhere else and his recent INR was 3.2. Patient is stable to be discharged home and follow up with ENT and his primary care physician for Coumadin management. Procedures Procedure Narrative An area of nasal bleeding on the right nasal septum was incised using 1% of lidocaine on the moist gauze then the area was cauterized using silver nitrate sticks and hemostasis was obtained. The area was inspected after ensuring the procedure and there was no more bleeding, patient tolerated the procedure well and is stable to be discharged. Diagnosis Primary Impression: Nasal bleeding Additional Instructions: Follow-up with ENT and primary care physician for Coumadin management return to the ER if any bleeding or if symptoms change or do not improve. Disposition: 01 DISCHARGE HOME Condition: Stable Iam Lai MD Sep 25, 2017 11:31
[2017-09-25 11:45] VITALS: BP 191/85
== END 2017-09-25 11:46 | disposition home or self-care (01) ==
LOC: PHED 09:49
DX: R04.0 Epistaxis (principal); Z79.01 Long term (current) use of anticoagulants
CPT/HCPCS: 30901

== ENCOUNTER 2017-09-26 10:11 | Emergency (ER) | payer MEDICARE, BC ==
[~2017-09-26] VITALS: Ht 188 cm; Wt 95.5 kg
[~2017-09-26 10:11] MED LIST changes: +MULT1TAB46 PO; +[UNRECOGNIZED DRUG - CODE] PO
[2017-09-26 10:17] VITALS: PULSE 62; RESP 16; TEMP 97.5; O2SAT 100
[2017-09-26] MEDS ORDERED: SILVER NITR/POTASSIUM NITRATE APPLICATORS TOPICAL ONE (10:45)
[2017-09-26] MEDS ORDERED: LIDOCAINE 1%/EPINEPHrine 1:100,000 SOLN 20 ML VIAL INFIL ONE (10:45)
--- NOTE | 2017-09-26 10:50 | PD ---
HPI Chief Complaint: Nosebleed Time Seen by Provider: 10:23 Travel History International Travel<30 days: No Contact w/Intl Traveler<30days: No Traveled to known affect area: No History of Present Illness HPI 81-year-old male that presents to the ED for evaluation of right nostril bleed. Patient has had a bleed for the past 2 days. Patient takes Coumadin. Patient was seen here yesterday and he had his naris cauterized with good results. Patient had a cotton ball and was actually doing good except that during the night patient started to pick at his nose again and the bleeding restarted. Patient partially has a history of dementia so he forgets his condition. He denies any other medical issues. He does have sharp nails and his right nostril appears to have abrasions from him scratching. Patient denies any pain. Other medical issues. Per patient his INR is 3.7 PFSH Past Medical History Hx Anticoagulant Therapy: Yes Arthritis: Yes (Right shoulder) Asthma: No Autoimmune Disease: No Anxiety: No Depression: No Heart Rhythm Problems: No Cancer: Yes (Prostate) Cardiovascular Problems: Yes (htn on meds) High Cholesterol: No Chemotherapy: Yes (Has new implant every 90 days) Chest Pain: No Congestive Heart Failure: Yes COPD: No Cerebrovascular Accident: No Diabetes: No Diminished Hearing: No Endocrine: No Gastrointestinal Disorders: No GERD: No Genitourinary: No Headaches: No Hiatal Hernia: No Hypertension: Yes Immune Disorder: No Implanted Vascular Access Dvce: Yes Kidney Stones: No Musculoskeletal: No Neurologic: Yes (GBS) Psychiatric: No Reproductive: No Respiratory: No Immunizations Current: Yes Migraines: No Radiation Therapy: No Renal Failure: No Seizures: No Sickle Cell Disease: No Sleep Apnea: No Thyroid Disease: No Ulcer: No Past Surgical History Abdominal Surgery: No AICD: No Arteriovenous Shunt: No Body Medical Devices: Mechanical aortic valve Cardiac Surgery: Yes (Mechanical aortic valve) Ear Surgery: No Endocrine Surgery: No Eye Surgery: No Genitourinary Surgery: Yes (SCOPE) Gynecologic Surgery: No Insulin Pump: No Joint Replacement: No Neurologic Surgery: No Oral Surgery: No Pacemaker: No Thoracic Surgery: No Other Surgery: Yes Social History Alcohol Use: No Tobacco Use: No (Quit 1995) Substance Use: No Allergies-Medications (Allergen,Severity, Reaction): Coded Allergies: *MDRO Multi-Drug Resistant Organism (Verified Allergy, Unknown, 09/26/17) 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 Cleared per infection control. Reported Meds & Prescriptions Reported Meds & Active Scripts Active Donepezil 5 Mg Tab 5 Mg PO HS Ativan (Lorazepam) 0.5 Mg Tab 0.5 Mg PO ONCE PRN Reported Vitamin D3 (Cholecalciferol (Vitamin D3)) 5,000 Unit Tab.rapdis 1 Tab PO DAILY Multi Vitamin Daily (Multiple Vitamin) 1 Tab Tab 1 Tab PO DAILY Coumadin (Warfarin) 10 Mg Tab 10 Mg PO DAILY [iron27] Zetia (Ezetimibe) 10 Mg Tab 10 Mg PO DAILY Zoladex Inj (Goserelin Acetate) 10.8 Mg Impl 10.8 Mg SQ Q12W Administer into upper abdomen [Kcl] 10 Meq DAILY Lasix (Furosemide) 20 Mg Tab 40 Mg PO DAILY Tamsulosin (Tamsulosin HCl) 0.4 Mg Cap 0.4 Mg PO HS Review of Systems Except as stated in HPI: all other systems reviewed are Neg Physical Exam Narrative GENERAL: SKIN: Warm and dry. HEAD: Atraumatic. Normocephalic. EYES: Pupils equal and round. No scleral icterus. No injection or drainage. ENT: No nasal bleeding or discharge. Mucous membranes pink and moist. Nostrils are patent bilaterally. Patient does have abrasions and what appears to be a small bleeder on the right lower aspect of the right nostril. Nontender. No pruritic. Minimal bleeding noted. Patient does have scratch goetz from him messing with it. NECK: Trachea midline. No JVD. CARDIOVASCULAR: Regular rate and rhythm. RESPIRATORY: No accessory muscle use. Clear to auscultation. Breath sounds equal bilaterally. GASTROINTESTINAL: Abdomen soft, non-tender, nondistended. Hepatic and splenic margins not palpable. MUSCULOSKELETAL: Extremities without clubbing, cyanosis, or edema. No obvious deformities. NEUROLOGICAL: Awake and alert. No obvious cranial nerve deficits. Motor grossly within normal limits. Five out of 5 muscle strength in the arms and legs. Normal speech. PSYCHIATRIC: Appropriate mood and affect; insight and judgment normal. Data Data Last Documented VS Vital Signs Date Time Temp Pulse Resp B/P (MAP) Pulse Ox O2 Delivery O2 Flow Rate FiO2 09/26/17 10:17 97.5 62 16 100 Orders Orders Prothrombin Time / Inr (Pt) (09/26/17 10:22) Lidocai-Epi 1%-1:100,000 Inj (Xylocaine- (09/26/17 10:45) Silver Nitrate Applicators (Silver Nitra (09/26/17 10:45) Ed Discharge Order (09/26/17 11:18) Labs Laboratory Tests Test 09/26/17 10:30 Prothrombin Time 46.3 SEC Prothromb Time International Ratio 4.6 RATIO MDM Medical Decision Making Medical Screen Exam Complete: Yes Emergency Medical Condition: Yes Medical Record Reviewed: Yes Interpretation(s) inr elevated Differential Diagnosis Anterior nosebleed versus nosebleed versus posterior epistaxis Narrative Course 81-year-old male that presents to the ED for evaluation of bleeding from nostril. Patient was properly examined and was found to have signs and symptoms consistent appears to be anterior epistaxis. Likely from patient messing with his own nostril. INR was ordered. Case was discussed with my attending who agreed with procedure. My attending Dr Kiser evaluated the patient and bleeding has stopped completely. No sign of active bleed at this time. He recommends against cauthery. This was discussed with family and patient who agree with plan. INR in the 4s. Patient told to stop dose of coumadin today and recheck on thursday. Close follow with PCP. See ED if worsening symptoms. Diagnosis Primary Impression: Acute anterior epistaxis Referrals: Juventino Rodriguez MD Patient Instructions: General Instructions Additional Instructions: Don't pick your nose. See ED worsening symptoms. . Med/Other Pt SpecificInfo: Prescription(s) given Disposition: 01 DISCHARGE HOME Condition: Stable Otilio Amaya Sep 26, 2017 10:50
[2017-09-26 10:59] LABS: INTERNATIONAL NORMALIZED RATIO 4.6 RATIO; PROTHROMBIN TIME - PATIENT 46.3 SEC (9.8-11.6)
== END 2017-09-26 11:25 | disposition home or self-care (01) ==
LOC: PHEFT 10:11
DX: R04.0 Epistaxis (principal); F03.90 Unspecified dementia, unspecified severity, without behavioral disturbance, psychotic disturbance, mood disturbance, and anxiety; I10 Essential (primary) hypertension; Z79.01 Long term (current) use of anticoagulants; Z87.39 Personal history of other diseases of the musculoskeletal system and connective tissue; Z85.46 Personal history of malignant neoplasm of prostate; Z86.69 Personal history of other diseases of the nervous system and sense organs
CPT/HCPCS: 85610; 99283

== ENCOUNTER 2017-09-27 09:58 | Emergency (ER) | payer MEDICARE, BC ==
[~2017-09-27] VITALS: Ht 185.4 cm; Wt 95.5 kg
[2017-09-27 09:59] VITALS: BP 104/59; PULSE 55; RESP 18; TEMP 97.7; O2SAT 98
--- NOTE | 2017-09-27 10:25 | PD ---
HPI Chief Complaint: Nosebleed Time Seen by Provider: 10:19 Travel History International Travel<30 days: No Contact w/Intl Traveler<30days: No Traveled to known affect area: No History of Present Illness HPI Patient presents with complaints of right nostril epistaxis. Accompanied by his who reports evaluation Thursday and Thursday. states that Thursday the nail was cauterized. On Thursday a blood clot was noted with controlled bleeding, no intervention at that time. Patient is on Coumadin. Last INR 3.2. She controls it regularly for heart valve. States that she gained control of the bleeding and leaves him alone. When she returns he has caused the bleeding to restart. He does have severe dementia. PFSH Past Medical History Hx Anticoagulant Therapy: Yes Arthritis: Yes (Right shoulder) Asthma: No Autoimmune Disease: No Anxiety: No Depression: No Heart Rhythm Problems: No Cancer: Yes (Prostate) Cardiovascular Problems: Yes (htn on meds) High Cholesterol: No Chemotherapy: Yes (Has new implant every 90 days) Chest Pain: No Congestive Heart Failure: Yes COPD: No Cerebrovascular Accident: No Diabetes: No Diminished Hearing: No Endocrine: No Gastrointestinal Disorders: No GERD: No Genitourinary: No Headaches: No Hiatal Hernia: No Hypertension: Yes Immune Disorder: No Implanted Vascular Access Dvce: Yes Kidney Stones: No Musculoskeletal: No Neurologic: Yes (GBS) Psychiatric: No Reproductive: No Respiratory: No Immunizations Current: Yes Migraines: No Radiation Therapy: No Renal Failure: No Seizures: No Sickle Cell Disease: No Sleep Apnea: No Thyroid Disease: No Ulcer: No ?: Not Past Surgical History Abdominal Surgery: No AICD: No Arteriovenous Shunt: No Body Medical Devices: Mechanical aortic valve Cardiac Surgery: Yes (Mechanical aortic valve) Ear Surgery: No Endocrine Surgery: No Eye Surgery: No Genitourinary Surgery: Yes (SCOPE) Gynecologic Surgery: No Insulin Pump: No Joint Replacement: No Neurologic Surgery: No Oral Surgery: No Pacemaker: No Thoracic Surgery: No Other Surgery: Yes Social History Alcohol Use: No Tobacco Use: No (Quit 1995) Substance Use: No Allergies-Medications (Allergen,Severity, Reaction): Coded Allergies: *MDRO Multi-Drug Resistant Organism (Verified Allergy, Unknown, 09/27/17) 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 Cleared per infection control. Reported Meds & Prescriptions Reported Meds & Active Scripts Active Donepezil 5 Mg Tab 5 Mg PO HS Ativan (Lorazepam) 0.5 Mg Tab 0.5 Mg PO ONCE PRN Reported Vitamin D3 (Cholecalciferol (Vitamin D3)) 5,000 Unit Tab.rapdis 1 Tab PO DAILY Multi Vitamin Daily (Multiple Vitamin) 1 Tab Tab 1 Tab PO DAILY Coumadin (Warfarin) 10 Mg Tab 10 Mg PO DAILY [iron27] Zetia (Ezetimibe) 10 Mg Tab 10 Mg PO DAILY Zoladex Inj (Goserelin Acetate) 10.8 Mg Impl 10.8 Mg SQ Q12W Administer into upper abdomen [Kcl] 10 Meq DAILY Lasix (Furosemide) 20 Mg Tab 40 Mg PO DAILY Tamsulosin (Tamsulosin HCl) 0.4 Mg Cap 0.4 Mg PO HS Review of Systems General / Constitutional: No: Fever Eyes: No: Visual changes HENT: Positive: Nosebleed, No: Headaches Cardiovascular: No: Chest Pain or Discomfort Respiratory: No: Shortness of Breath Gastrointestinal: No: Abdominal Pain Genitourinary: No: Dysuria Musculoskeletal: No: Pain Skin: No Rash Neurologic: No: Weakness Psychiatric: No: Depression Endocrine: No: Polydipsia Hematologic/Lymphatic: No: Easy Bruising Physical Exam Narrative GENERAL: Well-nourished, well-developed patient. SKIN: Focused skin assessment warm/dry. HEAD: Normocephalic. EYES: No scleral icterus. No injection or drainage. NECK: Supple, trachea midline. No JVD or lymphadenopathy. Right knee there cottonball removed with evaluation. No active bleeding noted. Blood clot in place CARDIOVASCULAR: Regular rate and rhythm without murmurs, gallops, or rubs. RESPIRATORY: Breath sounds equal bilaterally. No accessory muscle use. GASTROINTESTINAL: Abdomen soft, non-tender, nondistended. MUSCULOSKELETAL: No cyanosis, or edema. BACK: Nontender without obvious deformity. No CVA tenderness. Data Data Last Documented VS Vital Signs Date Time Temp Pulse Resp B/P (MAP) Pulse Ox O2 Delivery O2 Flow Rate FiO2 09/27/17 09:59 97.7 55 18 104/59 (74) 98 Orders Orders Mandatory Outpatient Referral (09/27/17 10:25) MDM Medical Decision Making Medical Screen Exam Complete: Yes Emergency Medical Condition: Yes Differential Diagnosis Epistaxis, hypercoagulation, nasal trauma Narrative Course Assessment and plan discussed with patient and at bedside. Nasal hammock placed. Discussed that I would like to avoid packing as a source of possible infection. Mandatory ENT referral placed. Diagnosis Primary Impression: Acute anterior epistaxis Patient Instructions: General Instructions Additional Instructions: Encouraged to leave nasal hammock in place, follow-up with ENT, avoid trauma to the nose, sleep in an upright position. Follow-up with PCP. Return to emergency room with any onset of new symptoms. Med/Other Pt SpecificInfo: No Meds Exist/No RX given Disposition: 01 DISCHARGE HOME Condition: [place] MD Sep 27, 2017 10:25
== END 2017-09-27 10:46 | disposition home or self-care (01) ==
LOC: PHED 09:58
DX: R04.0 Epistaxis (principal); F03.90 Unspecified dementia, unspecified severity, without behavioral disturbance, psychotic disturbance, mood disturbance, and anxiety; I10 Essential (primary) hypertension; Z79.01 Long term (current) use of anticoagulants
CPT/HCPCS: 99283

== ENCOUNTER 2017-09-27 16:52 | Emergency (ER) | payer MEDICARE, BC ==
[~2017-09-27] VITALS: Ht 185.4 cm; Wt 93.0 kg
[2017-09-27 16:55] VITALS: BP 179/92; PULSE 58; RESP 18; TEMP 97.7; O2SAT 97
--- NOTE | 2017-09-27 17:16 | PD ---
HPI Chief Complaint: Nosebleed Time Seen by Provider: 17:12 Travel History International Travel<30 days: No Contact w/Intl Traveler<30days: No Traveled to known affect area: No History of Present Illness HPI Patient presents for the fourth time for right knee or epistaxis. reports bleeding through the previously placed nasal hammock. States she's changed it 5 times since discharge this morning. Mandatory referrals was placed earlier with likely follow-up with ENT on Thursday or Thursday. Again patient does have dementia. Unsure if patient is causing the nosebleeds or the is changing the dressings too frequently. PFSH Past Medical History Hx Anticoagulant Therapy: Yes Arthritis: Yes (Right shoulder) Asthma: No Autoimmune Disease: No Anxiety: No Depression: No Heart Rhythm Problems: No Cancer: Yes (Prostate) Cardiovascular Problems: Yes (htn on meds) High Cholesterol: No Chemotherapy: Yes (Has new implant every 90 days) Chest Pain: No Congestive Heart Failure: Yes COPD: No Cerebrovascular Accident: No Diabetes: No Diminished Hearing: No Endocrine: No Gastrointestinal Disorders: No GERD: No Genitourinary: No Headaches: No Hiatal Hernia: No Hypertension: Yes Immune Disorder: No Implanted Vascular Access Dvce: Yes Kidney Stones: No Musculoskeletal: No Neurologic: Yes (GBS) Psychiatric: No Reproductive: No Respiratory: No Immunizations Current: Yes Migraines: No Radiation Therapy: No Renal Failure: No Seizures: No Sickle Cell Disease: No Sleep Apnea: No Thyroid Disease: No Ulcer: No Tetanus Vaccination: > 5 Years Influenza Vaccination: No (( GUILLIEN LEONIDES SYNDRONE HX )) Past Surgical History Abdominal Surgery: No AICD: No Arteriovenous Shunt: No Body Medical Devices: Mechanical aortic valve Cardiac Surgery: Yes (Mechanical aortic valve) Ear Surgery: No Endocrine Surgery: No Eye Surgery: No Genitourinary Surgery: Yes (SCOPE) Gynecologic Surgery: No Insulin Pump: No Joint Replacement: No Neurologic Surgery: No Oral Surgery: No Pacemaker: No Thoracic Surgery: No Other Surgery: Yes Social History Alcohol Use: No Tobacco Use: No (Quit 1995) Substance Use: No Allergies-Medications (Allergen,Severity, Reaction): Coded Allergies: *MDRO Multi-Drug Resistant Organism (Verified Allergy, Unknown, 09/27/17) 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 Cleared per infection control. Reported Meds & Prescriptions Reported Meds & Active Scripts Active Donepezil 5 Mg Tab 5 Mg PO HS Ativan (Lorazepam) 0.5 Mg Tab 0.5 Mg PO ONCE PRN Reported Vitamin D3 (Cholecalciferol (Vitamin D3)) 5,000 Unit Tab.rapdis 1 Tab PO DAILY Multi Vitamin Daily (Multiple Vitamin) 1 Tab Tab 1 Tab PO DAILY Coumadin (Warfarin) 10 Mg Tab 10 Mg PO DAILY [iron27] Zetia (Ezetimibe) 10 Mg Tab 10 Mg PO DAILY Zoladex Inj (Goserelin Acetate) 10.8 Mg Impl 10.8 Mg SQ Q12W Administer into upper abdomen [Kcl] 10 Meq DAILY Lasix (Furosemide) 20 Mg Tab 40 Mg PO DAILY Tamsulosin (Tamsulosin HCl) 0.4 Mg Cap 0.4 Mg PO HS Review of Systems General / Constitutional: No: Fever Eyes: No: Visual changes HENT: Positive: Other (nosebleed), No: Headaches Cardiovascular: No: Chest Pain or Discomfort Respiratory: No: Shortness of Breath Gastrointestinal: No: Abdominal Pain Genitourinary: No: Dysuria Musculoskeletal: No: Pain Skin: No Rash Neurologic: No: Weakness Psychiatric: No: Depression Endocrine: No: Polydipsia Hematologic/Lymphatic: No: Easy Bruising Physical Exam Narrative GENERAL: Well-nourished, well-developed patient. SKIN: Focused skin assessment warm/dry. HEAD: Normocephalic. EYES: No scleral icterus. No injection or drainage. Right naris, again no bright red blood is noted, no active bleeding is noted, multiple blood clots cleared from the nose with placement of a nasal rocket NECK: Supple, trachea midline. No JVD or lymphadenopathy. CARDIOVASCULAR: Regular rate and rhythm without murmurs, gallops, or rubs. RESPIRATORY: Breath sounds equal bilaterally. No accessory muscle use. GASTROINTESTINAL: Abdomen soft, non-tender, nondistended. MUSCULOSKELETAL: No cyanosis, or edema. BACK: Nontender without obvious deformity. No CVA tenderness. Data Data Last Documented VS Vital Signs Date Time Temp Pulse Resp B/P (MAP) Pulse Ox O2 Delivery O2 Flow Rate FiO2 09/27/17 16:55 97.7 58 18 179/92 (121) 97 Orders Orders Acetaminophen (Tylenol) (09/27/17 18:30) MDM Medical Decision Making Medical Screen Exam Complete: Yes Emergency Medical Condition: Yes Differential Diagnosis Epistaxis, self-inflicted epistaxis, malingering Narrative Course Assessment and plan was discussed with patient and at bedside. Posterior Nasal rocket placed. Plan to observe patient for 2-3 hours to assess bleeding controlled. Bleeding observed to be controlled. Physician Communication Physician Communication Case discussed and care transferred to Dr Rodriguez Diagnosis Primary Impression: Bleeding nose Patient Instructions: General Instructions Additional Instructions: Tylenol for discomfort since patient is on Coumadin. Leave nasal rocket in place. Do not manipulate. Follow-up with mandatory ENT referral that was placed at previous visit. Med/Other Pt SpecificInfo: No Meds Exist/No RX given Disposition: 01 DISCHARGE HOME Condition: [place] MD Sep 27, 2017 17:16
[2017-09-27] MEDS ORDERED: ACETAMINOPHEN 325 MG TAB PO ONE (18:30)
[2017-09-27 19:00] VITALS: BP 190/94; PULSE 60; RESP 18; O2SAT 99
[2017-09-27 19:20] VITALS: BP 190/88
== END 2017-09-27 19:30 | disposition home or self-care (01) ==
LOC: PHED 16:52
DX: R04.0 Epistaxis (principal); F03.90 Unspecified dementia, unspecified severity, without behavioral disturbance, psychotic disturbance, mood disturbance, and anxiety; Z79.01 Long term (current) use of anticoagulants; I10 Essential (primary) hypertension
CPT/HCPCS: 30905

== ENCOUNTER 2017-09-27 22:33 | Emergency (ER) | payer MEDICARE, BC ==
[~2017-09-27] VITALS: Ht 185.4 cm; Wt 95.1 kg
[2017-09-27 22:38] VITALS: BP 163/77; PULSE 66; RESP 20; TEMP 98.4
--- NOTE | 2017-09-27 23:05 | PD ---
HPI Chief Complaint: Nosebleed Time Seen by Provider: 22:58 Travel History International Travel<30 days: No Contact w/Intl Traveler<30days: No Traveled to known affect area: No History of Present Illness HPI 81-year-old male patient with history of mitral valve replacement, currently on Coumadin, has been here multiple times today because of epistaxis, had a Rhino Rocket placed this evening, went home and his daughter brings him back because he apparently is having bleeding still. Patient is demented and keeps wiping at his nose. They are concerned because of continued bleeding. Modifying Factors: None Associated Signs & Symptoms: Continued bleeding after Rhino Rocket placed Risk Factors: See multiple times today for this epistaxis, on Coumadin PFSH Past Medical History Hx Anticoagulant Therapy: Yes Arthritis: Yes (Right shoulder) Asthma: No Autoimmune Disease: No Anxiety: No Depression: No Heart Rhythm Problems: No Cancer: Yes (Prostate) Cardiovascular Problems: Yes (htn on meds) High Cholesterol: No Chemotherapy: Yes (Has new implant every 90 days) Chest Pain: No Congestive Heart Failure: Yes COPD: No Cerebrovascular Accident: No Dementia: Yes Diabetes: No Diminished Hearing: No Endocrine: No Gastrointestinal Disorders: No GERD: No Genitourinary: No Headaches: No Hiatal Hernia: No Hypertension: Yes Immune Disorder: No Implanted Vascular Access Dvce: Yes Kidney Stones: No Musculoskeletal: No Neurologic: Yes (GBS) Psychiatric: No Reproductive: No Respiratory: No Immunizations Current: Yes Migraines: No Radiation Therapy: No Renal Failure: No Seizures: No Sickle Cell Disease: No Sleep Apnea: No Thyroid Disease: No Ulcer: No Past Surgical History Abdominal Surgery: No AICD: No Arteriovenous Shunt: No Body Medical Devices: Mechanical aortic valve Cardiac Surgery: Yes (Mechanical aortic valve) Ear Surgery: No Endocrine Surgery: No Eye Surgery: No Genitourinary Surgery: Yes (SCOPE) Gynecologic Surgery: No Insulin Pump: No Joint Replacement: No Neurologic Surgery: No Oral Surgery: No Pacemaker: No Thoracic Surgery: No Other Surgery: Yes Social History Alcohol Use: No Tobacco Use: No (Quit 1995) Substance Use: No Allergies-Medications (Allergen,Severity, Reaction): Coded Allergies: *MDRO Multi-Drug Resistant Organism (Verified Allergy, Unknown, 09/27/17) 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 Cleared per infection control. Reported Meds & Prescriptions Reported Meds & Active Scripts Active Donepezil 5 Mg Tab 5 Mg PO HS Ativan (Lorazepam) 0.5 Mg Tab 0.5 Mg PO ONCE PRN Reported Vitamin D3 (Cholecalciferol (Vitamin D3)) 5,000 Unit Tab.rapdis 1 Tab PO DAILY Multi Vitamin Daily (Multiple Vitamin) 1 Tab Tab 1 Tab PO DAILY Coumadin (Warfarin) 10 Mg Tab 10 Mg PO DAILY [iron27] Zetia (Ezetimibe) 10 Mg Tab 10 Mg PO DAILY Zoladex Inj (Goserelin Acetate) 10.8 Mg Impl 10.8 Mg SQ Q12W Administer into upper abdomen [Kcl] 10 Meq DAILY Lasix (Furosemide) 20 Mg Tab 40 Mg PO DAILY Tamsulosin (Tamsulosin HCl) 0.4 Mg Cap 0.4 Mg PO HS Review of Systems Except as stated in HPI: all other systems reviewed are Neg Physical Exam Narrative GENERAL: Well-developed elderly male patient currently in mild distress. Awake , alert, not oriented. SKIN: Focused skin assessment warm/dry. HEAD: Atraumatic. Normocephalic. EYES: Pupils equal and round. No scleral icterus. No injection or drainage. ENT: Mucous membranes pink and moist.Right-sided Rhino Rocket in place, and there is a small amount of bleeding around the Rhino Rocket. NECK: Trachea midline. No JVD. CARDIOVASCULAR: Regular rate and rhythm. No murmur appreciated. RESPIRATORY: No accessory muscle use. Clear to auscultation. Breath sounds equal bilaterally. GASTROINTESTINAL: Abdomen soft, non-tender, nondistended. Hepatic and splenic margins not palpable. MUSCULOSKELETAL: No obvious deformities. No clubbing. No cyanosis. No edema. NEUROLOGICAL: Awake and alert. No obvious cranial nerve deficits. Motor grossly within normal limits. Normal speech. PSYCHIATRIC: Appropriate mood and affect; insight and judgment poor. Data Data Last Documented VS Vital Signs Date Time Temp Pulse Resp B/P (MAP) Pulse Ox O2 Delivery O2 Flow Rate FiO2 09/28/17 01:32 58 156/73 (100) 98 Room Air 09/27/17 23:35 16 09/27/17 22:38 98.4 Orders Orders Complete Blood Count With Diff (09/27/17 22:58) Prothrombin Time / Inr (Pt) (09/27/17 22:58) Clonidine (Catapres) (09/27/17 23:45) Clonidine (Catapres) (09/28/17 01:00) Ed Discharge Order (09/28/17 01:34) Labs Laboratory Tests Test 09/27/17 23:05 White Blood Count 7.7 TH/MM3 Red Blood Count 4.03 MIL/MM3 Hemoglobin 12.4 GM/DL Hematocrit 35.9 % Mean Corpuscular Volume 89.1 FL Mean Corpuscular Hemoglobin 30.7 PG Mean Corpuscular Hemoglobin Concent 34.4 % Red Cell Distribution Width 13.0 % Platelet Count 185 TH/MM3 Mean Platelet Volume 8.0 FL Neutrophils (%) (Auto) 79.5 % Lymphocytes (%) (Auto) 8.0 % Monocytes (%) (Auto) 8.3 % Eosinophils (%) (Auto) 0.9 % Basophils (%) (Auto) 3.3 % Neutrophils # (Auto) 6.1 TH/MM3 Lymphocytes # (Auto) 0.6 TH/MM3 Monocytes # (Auto) 0.6 TH/MM3 Eosinophils # (Auto) 0.1 TH/MM3 Basophils # (Auto) 0.3 TH/MM3 CBC Comment DIFF FINAL Differential Comment Prothrombin Time 25.0 SEC Prothromb Time International Ratio 2.5 RATIO MDM Medical Decision Making Medical Screen Exam Complete: Yes Emergency Medical Condition: Yes Medical Record Reviewed: Yes Interpretation(s) Laboratory Tests Test 09/27/17 23:05 Red Blood Count 4.03 MIL/MM3 (4.50-5.90) Hemoglobin 12.4 GM/DL (13.0-17.0) Hematocrit 35.9 % (39.0-51.0) Neutrophils (%) (Auto) 79.5 % (16.0-70.0) Lymphocytes (%) (Auto) 8.0 % (9.0-44.0) Monocytes (%) (Auto) 8.3 % (0.0-8.0) Basophils (%) (Auto) 3.3 % (0.0-2.0) Lymphocytes # (Auto) 0.6 TH/MM3 (1.0-4.8) Basophils # (Auto) 0.3 TH/MM3 (0-0.2) Prothrombin Time 25.0 SEC (9.8-11.6) Differential Diagnosis Epistaxis status post Rhino Rocket placement Narrative Course Rhino Rocket was pulled out just a small amount, about 1 cm. Rhino Rocket was readjusted and placed further into the nostril. Patient tolerated procedure well. Bleeding slowed down. His H&H is stable in the ER and his INR appears to be coming down. His blood pressure was a bit elevated after her procedure, likely secondary to the anxiety and discomfort of the procedure. He was given clonidine in the ER with improvement in blood pressures. He apparently has had history of blood pressure issues but had been taken off his blood pressure medications because he has not needed recently. Case was discussed with Dr. Putnam of ENT who has suggested that the patient follows up in the ENT clinic in 3 days. That we will keep the Coumadin we have discussed off for now and have him talk to his rehab tech or primary care doctor prescribing the Coumadin tomorrow on whether he should restart it. In addition, considering that he did have an elevated blood pressure here, I will have them discuss the blood pressure medication with his doctor as well. The bleeding slowed down in the ER and after several hours observation, my plan would be to release him with follow-up to ENT and his physicians. Return for new issues as needed. The plan has been discussed with him and he states understanding. Patient's also states understanding and is agreeable to the plan. Procedures Procedure Narrative Rhino Rocket readjustment: The area was taken out of the Rhino Rocket balloon and the Rhinocort rocket was pushed in further in order to have the compartments within the nostril completely. 5 cc of air was placed in each of the balloons. Patient tolerated procedure well. Diagnosis Primary Impression: Epistaxis Additional Impression: Hypertension Referrals: Cortez Putnam MD 3 days Med/Other Pt SpecificInfo: Med Stopped (Coumadin on hold until primary care physician discussion tomorrow) Disposition: 01 DISCHARGE HOME Condition: Stable Mireya Oliver MD Sep 27, 2017 23:05
[2017-09-27 23:14] LABS: AUTOMATED NEUTROPHIL # 6.1 TH/MM3 (1.8-7.7); BASOPHIL # 0.3 TH/MM3 (0-0.2); BASOPHIL % 3.3 % (0.0-2.0); EOSINOPHIL # 0.1 TH/MM3 (0-0.4); EOSINOPHIL % 0.9 % (0.0-4.0); HEMATOCRIT 35.9 % (39.0-51.0); HEMOGLOBIN 12.4 GM/DL (13.0-17.0); LYMPHOCYTE # 0.6 TH/MM3 (1.0-4.8); MEAN CELL VOLUME 89.1 FL (80.0-100.0); MEAN CORPUSCULAR HEMOGLOBIN 30.7 PG (27.0-34.0); MEAN CORPUSCULAR HGB CONC 34.4 % (32.0-36.0); MONO % 8.3 % (0.0-8.0); MONOCYTE # 0.6 TH/MM3 (0-0.9); NEUT % 79.5 % (16.0-70.0); PLATELET COUNT 185 TH/MM3 (150-450); RED BLOOD COUNT 4.03 MIL/MM3 (4.50-5.90); WHITE BLOOD COUNT 7.7 TH/MM3 (4.0-11.0)
[2017-09-27 23:26] LABS: INTERNATIONAL NORMALIZED RATIO 2.5 RATIO
[2017-09-27 23:35] VITALS: BP_SYST 200; BP_SYST 217; BP_DIAS 117; BP_DIAS 91; PULSE 54; RESP 16; O2SAT 98
[2017-09-27] MEDS ORDERED: cloNIDine HCL 0.1 MG TAB PO ONE (23:45)
[2017-09-28 00:22] VITALS: BP 191/83
[2017-09-28 00:43] VITALS: BP 196/85
[2017-09-28 00:45] VITALS: BP 195/77
[2017-09-28] MEDS ORDERED: cloNIDine HCL 0.1 MG TAB PO ONE (01:00)
[2017-09-28 01:32] VITALS: BP 156/73; PULSE 58; O2SAT 98
== END 2017-09-28 01:56 | disposition home or self-care (01) ==
LOC: PHED 22:33
DX: R04.0 Epistaxis (principal); I10 Essential (primary) hypertension; F03.90 Unspecified dementia, unspecified severity, without behavioral disturbance, psychotic disturbance, mood disturbance, and anxiety; Z79.01 Long term (current) use of anticoagulants; Z95.2 Presence of prosthetic heart valve
CPT/HCPCS: 85025; 85610; 99283

== ENCOUNTER → 2017-11-18 | Outpatient (CLI) | payer MEDICARE, BC ==
[~2017-11-18] MED LIST changes: +CEPH500C PO; +COUM5TAB PO; +COUM7.5T PO; +LACT1CAP19; +TEMA15CA PO
== END ==
LOC: PLAB 12:50
PROVIDERS: ATTEND Urology
DX: C61 Malignant neoplasm of prostate (principal)
CPT/HCPCS: 36415; 84153

== ENCOUNTER 2017-11-24 00:43 | Emergency (ER) | payer MEDICARE, BC ==
[2017-11-24] MEDS ORDERED: SODIUM CHLORIDE 0.9% FLUSH 10 ML FLUSH IVF (01:00)
[2017-11-24 02:05] LABS: AUTOMATED NEUTROPHIL # 3.5 TH/MM3 (1.8-7.7); BASOPHIL % 0.6 % (0.0-2.0); BILIRUBIN, URINE NEG (NEG); BLOOD, URINE NEG (NEG); EOSINOPHIL # 0.2 TH/MM3 (0-0.4); EOSINOPHIL % 4.7 % (0.0-4.0); GLUCOSE,URINE NEG (NEG); HEMATOCRIT 34.2 % (39.0-51.0); HEMO FLAGS DIFF FINAL; HEMOGLOBIN 11.9 GM/DL (13.0-17.0); KETONE, URINE NEG (NEG); LYMPH % 12.3 % (9.0-44.0); LYMPHOCYTE # 0.6 TH/MM3 (1.0-4.8); MEAN CELL VOLUME 88.4 FL (80.0-100.0); MEAN CORPUSCULAR HEMOGLOBIN 30.7 PG (27.0-34.0); MEAN CORPUSCULAR HGB CONC 34.7 % (32.0-36.0); MEAN PLATELET VOLUME 8.2 FL (7.0-11.0); MONO % 8.3 % (0.0-8.0); MONOCYTE # 0.4 TH/MM3 (0-0.9); NEUT % 74.1 % (16.0-70.0); NITRITE,URINE NEG (NEG); PLATELET COUNT 170 TH/MM3 (150-450); RED BLOOD COUNT 3.86 MIL/MM3 (4.50-5.90); RED CELL DISTRIBUTION WIDTH 14.6 % (11.6-17.2); URINE COLOR YELLOW (YELLW/STRAW); URINE LEUKOCYTE ESTERASE NEG (NEG); WHITE BLOOD COUNT 4.7 TH/MM3 (4.0-11.0)
[2017-11-24 02:10] LABS: RBC, URINE 0-2 /hpf (0-3); SQUAMOUS EPITHELIAL CELL URINE 0-5 /hpf (0-5); WBC, URINE 0-2 /hpf (0-5)
[2017-11-24 02:11] LABS: COMMENT (UR) CULT NOT INDICATED; CULTURE IF INDICATED CULT NOT INDICATED
[2017-11-24 02:13] LABS: CHLORIDE 107 MEQ/L (98-107); POTASSIUM 3.6 MEQ/L (3.5-5.1); SODIUM (NA) 141 MEQ/L (136-145)
[2017-11-24 02:15] LABS: CALCIUM 8.7 MG/DL (8.5-10.1); INTERNATIONAL NORMALIZED RATIO 2.2 RATIO; PROTHROMBIN TIME - PATIENT 22.7 SEC (9.8-11.6)
[2017-11-24 02:16] LABS: ANION GAP 4 MEQ/L (5-15); BICARBONATE 30.3 MEQ/L (21.0-32.0); BLOOD UREA NITROGEN 22 MG/DL (7-18); GLUCOSE,RANDOM 97 MG/DL (74-106); MAGNESIUM 2.8 MG/DL (1.5-2.5)
[2017-11-24 02:19] LABS: GLOMERULAR FILTRATION RATE 71 ML/MIN (>89)
[2017-11-24 02:24] LABS: TROPONIN I LESS THAN 0.02 NG/ML (0.02-0.05)
[2017-11-24] MEDS: ACETAMINOPHEN 325 MG TAB PO (06:01)
== END 2017-11-24 08:30 | disposition home or self-care (01) ==
LOC: PHED 00:43
DX: S52.501A Unspecified fracture of the lower end of right radius, initial encounter for closed fracture (principal); S09.90XA Unspecified injury of head, initial encounter; R00.1 Bradycardia, unspecified; I44.30 Unspecified atrioventricular block; R94.31 Abnormal electrocardiogram [ECG] [EKG]; F03.90 Unspecified dementia, unspecified severity, without behavioral disturbance, psychotic disturbance, mood disturbance, and anxiety; W19.XXXA Unspecified fall, initial encounter; Z91.81 History of falling; Y92.129 Unspecified place in nursing home as the place of occurrence of the external cause
CPT/HCPCS: 29125; 70450; 72125; 73060; 73090; 73110; 80048; 81001; 83735; 84484; 85025; 85610; 93005; 99285-25

== ENCOUNTER 2017-12-26 13:48 | Emergency (ER) | payer MEDICARE, BC ==
[~2017-12-26] VITALS: Ht 185.4 cm; Wt 91.4 kg
[~2017-12-26 13:48] MED LIST changes: -COUM10TA PO
[2017-12-26 13:53] VITALS: BP 146/71; PULSE 67; RESP 20; TEMP 97.8; O2SAT 97
--- NOTE | 2017-12-26 14:26 | PD ---
HPI . Skin tear Chief Complaint: Skin Problem Time Seen by Provider: 14:00 Travel History International Travel<30 days: No Contact w/Intl Traveler<30days: No Traveled to known affect area: No History of Present Illness HPI Patient presents with chief complaint of a skin tear on the right elbow. Onset was 3-4 weeks ago. He lives in an assisted living facility. His visits him almost daily. She states that she got there today and that they had wrapped his arm so tightly that he was swollen distally. She states that the wound continues to ooze blood. He is on Coumadin. In addition, the patient suffered a fracture of the right wrist approximately 5 weeks ago. He is currently in a Velcro splint. She states that he has significant swelling of his wrist and forearm associated with the fracture. She states that that swelling had just gone down and then she discovered his elbow wrapped tightly causing distal swelling of the same wrist and forearm. PFSH Past Medical History Hx Anticoagulant Therapy: Yes Arthritis: Yes (Right shoulder) Asthma: No Autoimmune Disease: No Anxiety: No Depression: No Heart Rhythm Problems: No Cancer: Yes (Prostate) Cardiovascular Problems: Yes High Cholesterol: No Chemotherapy: Yes (Has new implant every 90 days) Chest Pain: No Congestive Heart Failure: Yes COPD: No Cerebrovascular Accident: No Dementia: Yes Diabetes: No Diminished Hearing: No Endocrine: No Gastrointestinal Disorders: No GERD: No Genitourinary: No Headaches: No Hiatal Hernia: No Hypertension: Yes Immune Disorder: No Implanted Vascular Access Dvce: Yes Kidney Stones: No Musculoskeletal: No Neurologic: Yes (GBS) Psychiatric: No Reproductive: No Respiratory: No Immunizations Current: Yes Migraines: No Radiation Therapy: No Renal Failure: No Seizures: No Sickle Cell Disease: No Sleep Apnea: No Thyroid Disease: No Ulcer: No Past Surgical History Abdominal Surgery: No AICD: No Arteriovenous Shunt: No Body Medical Devices: Mechanical aortic valve Cardiac Surgery: Yes (Mechanical aortic valve) Ear Surgery: No Endocrine Surgery: No Eye Surgery: No Genitourinary Surgery: Yes (SCOPE) Gynecologic Surgery: No Insulin Pump: No Joint Replacement: No Neurologic Surgery: No Oral Surgery: No Pacemaker: No Thoracic Surgery: No Other Surgery: Yes Social History Alcohol Use: No Tobacco Use: No (Quit 1995) Substance Use: No Allergies-Medications (Allergen,Severity, Reaction): Coded Allergies: *MDRO Multi-Drug Resistant Organism (Verified Allergy, Unknown, 12/26/17) 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 Cleared per infection control. Reported Meds & Prescriptions Reported Meds & Active Scripts Active Donepezil 5 Mg Tab 5 Mg PO HS Ativan (Lorazepam) 0.5 Mg Tab 0.5 Mg PO ONCE PRN Reported Coumadin (Warfarin) 5 Mg Tab 5 Mg PO DAILY Coumadin (Warfarin) 7.5 Mg Tab 7.5 Mg PO DAILY Vitamin D3 (Cholecalciferol (Vitamin D3)) 5,000 Unit Tab.rapdis 1 Tab PO DAILY Multi Vitamin Daily (Multiple Vitamin) 1 Tab Tab 1 Tab PO DAILY [iron27] Zetia (Ezetimibe) 10 Mg Tab 10 Mg PO DAILY Zoladex Inj (Goserelin Acetate) 10.8 Mg Impl 10.8 Mg SQ Q12W Administer into upper abdomen [Kcl] 10 Meq DAILY Lasix (Furosemide) 20 Mg Tab 40 Mg PO DAILY Tamsulosin (Tamsulosin HCl) 0.4 Mg Cap 0.4 Mg PO HS Cephalexin 500 Mg Cap 500 Mg PO Q8H Temazepam 15 Mg Cap 15 Mg PO HS PRN Review of Systems Except as stated in HPI: all other systems reviewed are Neg Physical Exam Narrative GENERAL: Awake and alert and in no acute distress. SKIN: Warm and dry. He has a skin tear on the right elbow. It is oozing blood. It does not look infected. There is no purulent drainage. There is no redness or warmth of the surrounding skin. HEAD: Normocephalic/atraumatic. EYES: Pupils are equal. Extraocular movements are intact. NECK: Normal range of motion. Supple. CARDIOVASCULAR: Regular rate and rhythm. RESPIRATORY: Nonlabored respirations. Normal sats. MUSCULOSKELETAL: Atraumatic. Normal muscle tone. NEUROLOGICAL: Shuffling gait. No obvious acute focal deficits. PSYCHIATRIC: Appropriate mood and affect. Data Data Last Documented VS Vital Signs Date Time Temp Pulse Resp B/P (MAP) Pulse Ox O2 Delivery O2 Flow Rate FiO2 12/26/17 13:53 97.8 67 20 146/71 (96) 97 MDM Medical Decision Making Medical Screen Exam Complete: Yes Emergency Medical Condition: Yes Differential Diagnosis Differential diagnosis includes skin tear with delayed healing, wound infection Narrative Course This patient presents with a skin tear on the right elbow 3-4 weeks with continued oozing of blood. Procedures Procedure Narrative LACERATION LOCATION: Right elbow LENGTH: 6 cm REPAIR: The wound was closed using Steri-Strips. A sterile dressing was applied. The patient was advised to keep the dressing clean and dry. Patient tolerated the procedure well. Diagnosis Primary Impression: Skin tear of elbow without complication Qualified Codes: S51.011A - Laceration without foreign body of right elbow, initial encounter Patient Instructions: General Instructions Departure Forms: Tests/Procedures Additional Instructions: Leave the dressing on for 3 days. You may add more gauze if it bleeds through. Then start changing the dressing daily. Use a vaseline gauze and gauze wrap. Allow the steri-strips to come off by themselves. Trim the edges as needed. Disposition: 01 DISCHARGE HOME Condition: Stable Rosalina Luong MD Dec 26, 2017 14:26
== END 2017-12-26 14:40 | disposition home or self-care (01) ==
LOC: PHEFT 13:48
DX: S51.011A Laceration without foreign body of right elbow, initial encounter (principal); X58.XXXA Exposure to other specified factors, initial encounter; M19.011 Primary osteoarthritis, right shoulder; I11.0 Hypertensive heart disease with heart failure; I50.9 Heart failure, unspecified; F03.90 Unspecified dementia, unspecified severity, without behavioral disturbance, psychotic disturbance, mood disturbance, and anxiety; S62.101D Fracture of unspecified carpal bone, right wrist, subsequent encounter for fracture with routine healing; X58.XXXD Exposure to other specified factors, subsequent encounter; Z87.891 Personal history of nicotine dependence; Z95.2 Presence of prosthetic heart valve; Z79.01 Long term (current) use of anticoagulants
CPT/HCPCS: 12002

== ENCOUNTER 2018-01-16 08:43 | Inpatient (IN) ==
[2018-01-17] MEDS ORDERED: Naloxone Inj 0.4 MG/ML Vial IV.PUSH PRN
[2018-01-17] MEDS: hydrALAZINE HCl Inj 20 MG/ML Vial IV.PUSH PRN (03:38)
[2018-01-17 06:00] LABS: Baso % (Auto) 0.7 % (0.0-2.0); Eos # (Auto) 0.2 th/mm3 (0.0-0.4); Eos % (Auto) 2.5 % (0.0-4.0); Hematocrit 37.3 % (39.0-51.0); Hemoglobin 12.7 gm/dL (13.0-17.0); Lymph # (Auto) 0.7 th/mm3 (1.0-4.8); Lymph % (Auto) 10.6 % (9.0-44.0); Mean Corpuscular HGB Conc 34.1 % (32.0-36.0); Mean Corpuscular Hemoglobin 30.4 pg (27.0-34.0); Mean Corpuscular Volume 89.2 fL (80.0-100.0); Mean Platelet Volume 8.6 fL (7.0-11.0); Mono # (Auto) 0.5 th/mm3 (0.0-0.9); Mono % (Auto) 8.2 % (0.0-8.0); Platelet Count 161 th/mm3 (150-450); Red Blood Count 4.18 mil/mm3 (4.50-5.90); Red Cell Distribution Width 13.9 % (11.6-17.2); White Blood Count 6.5 th/mm3 (4.0-11.0)
[2018-01-17 06:08] LABS: INR 2.2 Ratio; Prothrombin Time 22.6 sec (9.8-11.6)
[2018-01-17] MEDS ORDERED: Sod Chloride 0.9% Inj 1,000 ML IV.SIG ONE (06:15)
[2018-01-17 06:36] LABS: Calcium 8.1 mg/dL (8.5-10.1); Carbon Dioxide 25.1 meq/L (21.0-32.0); Potassium 3.5 meq/L (3.5-5.1)
--- NOTE | 2018-01-17 07:50 | P.PNADD ---
Addendum to Inpatient Note Reason for Addendum: Additional Documentation Additional information: S: At 06:21 Residents were paged for a Code Blue for Mr Larkin, an 82 YO pt with dementia and bradycardia, who was admitted for symptomatic bradycardia. Dr Puri responded to bedside where pt was thought to be pulseless following return from bathroom. Pt was found to be DNR, but when pt was checked a pulse was found and Code Blue was cancelled. Dr [facility] After several minutes, nursing called a Halicat due to pt being hypotensive and was bradycardic. Residents responded to bedside where Mr Larkin' s HOB was flat and pt was conscious. Pt BP was 82/47 and HR was 54. Pt bradycardia was at baseline. Pt explained he had become dizzy upon returning from the bathroom and was oriented to self but not place or time. O: VS: T - 97.5 / HR 49-54 / BP 82/47 / RR 18 / 99% RA Last Vital Signs Temp 97.5 F L 01/17/18 03:46 Pulse 96 H 01/17/18 05:00 Resp 16 01/17/18 03:46 BP 185/65 H 01/17/18 03:46 Pulse Ox 97 01/17/18 03:46 GENERAL: well-nourished, well-developed elderly male supine in bed with HOB flat. SKIN: Warm and dry. HEAD: Normocephalic. EYES: No scleral icterus. No injection or drainage. NECK: Supple, trachea midline. No JVD or lymphadenopathy. CARDIOVASCULAR: Bradycardic, regular rhythm without murmurs, gallops, or rubs. RESPIRATORY: Breath sounds equal bilaterally. No accessory muscle use. GASTROINTESTINAL: Abdomen soft, non-tender, nondistended. MUSCULOSKELETAL: No cyanosis, or edema. Neuro: AO to self but not place or date. A/P: 82YO male with dementia and symptomatic bradycardia with hypotension. Ravindra Owens called in error when a pulse could not immediately be obtained. When pulse was obtained, pt was found to be hypotensive. -Review of record shows does not have CHF -1L NS IVF bolus -Bedside glucose -Labs: CBC, CMP Pt SDW Dr Puri
[2018-01-17] MEDS: Ezetimibe 10 MG Tablet PO SCH (09:44)
[2018-01-17] MEDS: Furosemide 40 MG Tablet PO SCH (09:56)
[2018-01-17 11:44] LABS: Baso % (Auto) 0.6 % (0.0-2.0); Eos # (Auto) 0.1 th/mm3 (0.0-0.4); Eos % (Auto) 0.7 % (0.0-4.0); Hematocrit 35.3 % (39.0-51.0); Hemoglobin 11.8 gm/dL (13.0-17.0); Lymph # (Auto) 0.5 th/mm3 (1.0-4.8); Mean Corpuscular HGB Conc 33.5 % (32.0-36.0); Mean Corpuscular Hemoglobin 29.8 pg (27.0-34.0); Mean Corpuscular Volume 89.1 fL (80.0-100.0); Mean Platelet Volume 8.2 fL (7.0-11.0); Mono # (Auto) 0.5 th/mm3 (0.0-0.9); Mono % (Auto) 6.3 % (0.0-8.0); Neut # (Auto) 6.6 th/mm3 (1.8-7.7); Neut % (Auto) 86.4 % (16.0-70.0); Platelet Count 159 th/mm3 (150-450); Red Blood Count 3.96 mil/mm3 (4.50-5.90); Red Cell Distribution Width 13.9 % (11.6-17.2); White Blood Count 7.7 th/mm3 (4.0-11.0)
[2018-01-17 12:24] LABS: Alanine Aminotransferase 17 U/L (12-78); Albumin 2.8 g/dL (3.4-5.0); Alkaline Phosphatase 69 U/L (45-117); Anion Gap 8 meq/L (5-15); Aspartate Aminotransferase 28 U/L (15-37); Blood Urea Nitrogen 17 mg/dL (7-18); Calcium 7.9 mg/dL (8.5-10.1); Carbon Dioxide 24.9 meq/L (21.0-32.0); Chloride 108 meq/L (98-107); Glomerular Filtration Rate 88 mL/min (>89); Glucose,Random 111 mg/dL (74-106); Potassium 3.9 meq/L (3.5-5.1); Sodium 141 meq/L (136-145); Total Protein 5.2 g/dL (6.4-8.2)
--- NOTE | 2018-01-17 18:00 | P.PN ---
Subjective Interval history: Follow-up syncope. Discussed with nursing, had another episode of syncope when patient was in the commode and had bradycardia and then passed out early this morning. Awaiting cardiology evaluation Physical Exam Vital signs: Vital Signs 01/16/18 23:00 01/16/18 23:45 01/17/18 00:00 Temperature 97.9 F Pulse Rate 56 L 53 L 52 L Respiratory Rate 18 Blood Pressure 154/86 H Pulse Oximetry 100 01/17/18 01:00 01/17/18 02:00 01/17/18 03:46 Temperature 97.5 F L Pulse Rate 56 L 64 71 Respiratory Rate 16 Blood Pressure 185/65 H Pulse Oximetry 97 01/17/18 05:00 01/17/18 08:00 01/17/18 12:00 Temperature 98.6 F 99.4 F Pulse Rate 96 H 49 L 58 L Respiratory Rate 20 20 Blood Pressure 120/60 121/69 Pulse Oximetry 98 98 01/17/18 16:00 Temperature 97.9 F Pulse Rate 50 L Respiratory Rate 18 Blood Pressure 153/77 H Pulse Oximetry 96 Intake & Output 01/16/18 01/17/18 01/17/18 18:59 06:59 18:59 Intake Total 240 / 240 Output Total 625 / 625 Balance -385 / -385 Weight 88.5 kg Intake: Oral 240 / 240 Output: Urine 625 / 625 Other: Date of Last Bowel Movement 01/17/18 Weight On Admission 88.5 kg Narrative: GENERAL: This is a well-nourished, well-developed patient, in no apparent distress. SKIN: No rashes, ecchymoses or lesions. Cool and dry. CARDIOVASCULAR: Sinus bradycardia with midsystolic click RESPIRATORY: Clear to auscultation. Breath sounds equal bilaterally. No wheezes , rales, or rhonchi. GASTROINTESTINAL: Abdomen soft, non-tender, nondistended. No guarding. MUSCULOSKELETAL: Extremities without clubbing, cyanosis, or edema. No joint tenderness, effusion, or edema noted. No calf tenderness. Negative Homans sign bilaterally. NEUROLOGICAL: Awake and alert. Cranial nerves II through XII intact. Motor and sensory grossly within normal limits. Five out of 5 muscle strength in all muscle groups. Normal speech. Results - Labs CBC & Chem 7: 01/17/18 11:15 01/17/18 11:15 Labs: Laboratory Results - last 24 hr 01/16/18 01/16/18 01/16/18 09:40 09:40 09:40 WBC 4.8 RBC 3.86 L Hgb 12.0 L Hct 34.4 L MCV 89.1 MCH 31.0 MCHC 34.8 RDW 13.4 Plt Count 155 MPV 8.0 Neut % (Auto) 81.2 H Lymph % (Auto) 9.8 [place] % (Auto) 5.6 Eos % (Auto) 2.8 Baso % (Auto) 0.6 Neut # (Auto) 3.9 Lymph # (Auto) 0.5 L [place] # (Auto) 0.3 Eos # (Auto) 0.1 Baso # (Auto) 0.0 CBC Comment DIFF FINAL WBC Differential Differential Comment PT 27.2 H INR 2.7 APTT 33.4 H Sodium 141 Potassium 4.1 Chloride 106 Carbon Dioxide 28.6 Anion Gap 6 BUN 21 H Creatinine 0.98 Estimated GFR 73 L POC Glucose Random Glucose 100 Calcium 8.4 L Magnesium 2.5 Total Bilirubin AST ALT Alkaline Phosphatase Total Creatine Kinase 37 L Troponin I LESS THAN 0.02 L Total Protein Albumin 01/16/18 01/17/18 01/17/18 17:00 04:17 04:17 WBC 6.5 RBC 4.18 L Hgb 12.7 L Hct 37.3 L MCV 89.2 MCH 30.4 MCHC 34.1 RDW 13.9 Plt Count 161 MPV 8.6 Neut % (Auto) 78.0 H Lymph % (Auto) 10.6 [place] % (Auto) 8.2 H Eos % (Auto) 2.5 Baso % (Auto) 0.7 Neut # (Auto) 5.0 Lymph # (Auto) 0.7 L [place] # (Auto) 0.5 Eos # (Auto) 0.2 Baso # (Auto) 0.0 CBC Comment WBC Differential . Differential Comment Auto diff final PT INR APTT Sodium 141 Potassium 3.5 Chloride 106 Carbon Dioxide 25.1 Anion Gap 10 BUN 17 Creatinine 0.87 Estimated GFR 84 L POC Glucose Random Glucose 78 Calcium 8.1 L Magnesium Total Bilirubin AST ALT Alkaline Phosphatase Total Creatine Kinase Troponin I LESS THAN 0.02 L Total Protein Albumin 01/17/18 01/17/18 01/17/18 04:17 06:22 11:15 WBC 7.7 RBC 3.96 L Hgb 11.8 L Hct 35.3 L MCV 89.1 MCH 29.8 MCHC 33.5 RDW 13.9 Plt Count 159 MPV 8.2 Neut % (Auto) 86.4 H Lymph % (Auto) 6.0 L [place] % (Auto) 6.3 Eos % (Auto) 0.7 Baso % (Auto) 0.6 Neut # (Auto) 6.6 Lymph # (Auto) 0.5 L [place] # (Auto) 0.5 Eos # (Auto) 0.1 Baso # (Auto) 0.0 CBC Comment WBC Differential . Differential Comment Auto diff final PT 22.6 H INR 2.2 APTT Sodium Potassium Chloride Carbon Dioxide Anion Gap BUN Creatinine Estimated GFR POC Glucose 122 H Random Glucose Calcium Magnesium Total Bilirubin AST ALT Alkaline Phosphatase Total Creatine Kinase Troponin I Total Protein Albumin 01/17/18 01/17/18 11:15 11:15 WBC RBC Hgb Hct MCV MCH MCHC RDW Plt Count MPV Neut % (Auto) Lymph % (Auto) [place] % (Auto) Eos % (Auto) Baso % (Auto) Neut # (Auto) Lymph # (Auto) [place] # (Auto) Eos # (Auto) Baso # (Auto) CBC Comment WBC Differential Differential Comment PT INR APTT Sodium 141 Potassium 3.9 Chloride 108 H Carbon Dioxide 24.9 Anion Gap 8 BUN 17 Creatinine 0.83 Estimated GFR 88 L POC Glucose Random Glucose 111 H Calcium 7.9 L Magnesium 2.3 Total Bilirubin 0.7 AST 28 ALT 17 Alkaline Phosphatase 69 Total Creatine Kinase Troponin I Total Protein 5.2 L Albumin 2.8 L Assessment and Plan - Plan Symptomatic Bradycardia Status: Acute Plan: Patient with episode recently resulting in the fall with a right wrist fracture. Patient's heart rates been in the mid 40s to low 50s here. He does have a mechanical valve and is on warfarin. Will need cardiac evaluation for possible pacemaker. Continue telemetry Follow-up medications to avoid inotropic effects (2) Dementia ICD Code: F03.90 - Dementia Status: Chronic Plan: Stable at this time on home regimen of benazepril, multivitamin and vitamin D (3) Hx of aortic valve replacement, mechanical ICD Code: Z95.4 - Hx of aortic valve replacement, mechanical Status: Chronic Plan: Currently on warfarin (goal 3-3.5) Follows up with cardiology Start heparin drip INR 2.2. Restart Coumadin per cardiology 3. Continue home medications for prostatic hyperplasia and hyperlipidemia
--- NOTE | 2018-01-17 18:29 | P.CONCA ---
History of Present Illness Service: Cardiology Consult date: 01/17/18 Reason for Consult: Bradycardia Primary Care Provider: No Primary Care Physician Chief Complaint: syncope History of Present Illness: Mr. Larkin is a pleasant 82 year old known to Dr. Tomlin. He presented yesterday to [facility] after having a syncopal episode while eating. His trazadone had been increased and there was question of whether he passed out or fell asleep. He was transferred to [facility] for further evaluation and monitoring. He has a history of aortic valve replacement - mechanical valve on coumadin therapy and dementia. He has been running SB in the 50's since arrival. BP has been stable. Today after getting up to the commode to have a bowel movement, he had another syncopal event. He was bradycardic in the 40's, BP had dropped at that time. He was given IV fluid bolus with improvement. He is currently resting in bed without distress. HR 54. He is unable to give much information due to his dementia. His has left for the day but she did speak with Dr. Marquez earlier today. Review of Systems unobtainable due to mental status Medications and Allergies Active Medications: Active Medications Donepezil HCl (Aricept) 5 mg PO HS SIMONE Ezetimibe (Zetia) 10 mg PO DAILY [facility] Last Admin: 01/17/18 09:44 Dose: 10 mg Furosemide (Lasix) 40 mg PO DAILY [facility] Last Admin: 01/17/18 09:56 Dose: 40 mg Hydralazine HCl (Apresoline Inj) 10 mg IV.PUSH Q4H PRN PRN Reason: SBP>160,DBP>90 Last Admin: 01/17/18 03:38 Dose: 10 mg Heparin Sodium/Dextrose (Heparin/D5w 25,000 U/250 Ml) 25,000 unit in 250 mls @ 0 mls/hr IV.CONT TITRATE PRN; Protocol PRN Reason: Per Protocol Metoclopramide HCl (Reglan Inj) 5 mg IV.PUSH Q6H PRN PRN Reason: NAUSEA OR VOMITING Naloxone HCl (Narcan Inj) 0.4 mg IV.PUSH UNSCH PRN PRN Reason: SEE LABEL COMMENTS Potassium Chloride (Klor-Con 10) 20 meq PO DAILY [facility] Sennosides (Senokot) 17.2 mg PO Q12H PRN PRN Reason: MODERATE CONSTIPATION Sodium Chloride (Ns Flush) 2 ml IV.FLUSH UNSCH PRN PRN Reason: FLUSH AFTER USING IV ACCESS Sodium Chloride (Ns Flush) 2 ml IV.FLUSH BID [facility] Last Admin: 01/17/18 09:44 Dose: 2 ml Tamsulosin HCl (Flomax) 0.4 mg PO HS [facility] Trazodone HCl (Desyrel) 50 mg PO HS [facility] Allergies Allergy/AdvReac Type Severity Reaction Status Date / Time *MDRO Multi-Drug Resistant Allergy Unknown Uncoded 12/26/17 13:50 Organism Exam Vital signs: Vital Signs 01/16/18 23:00 01/16/18 23:45 01/17/18 00:00 Temperature 97.9 F Pulse Rate 56 L 53 L 52 L Respiratory Rate 18 Blood Pressure 154/86 H Pulse Oximetry 100 01/17/18 01:00 01/17/18 02:00 01/17/18 03:46 Temperature 97.5 F L Pulse Rate 56 L 64 71 Respiratory Rate 16 Blood Pressure 185/65 H Pulse Oximetry 97 01/17/18 05:00 01/17/18 08:00 01/17/18 12:00 Temperature 98.6 F 99.4 F Pulse Rate 96 H 49 L 58 L Respiratory Rate 20 20 Blood Pressure 120/60 121/69 Pulse Oximetry 98 98 01/17/18 16:00 Temperature 97.9 F Pulse Rate 50 L Respiratory Rate 18 Blood Pressure 153/77 H Pulse Oximetry 96 Intake & Output 01/16/18 01/17/18 01/17/18 18:59 06:59 18:59 Intake Total 240 / 240 Output Total 625 / 625 Balance -385 / -385 Weight 88.5 kg Intake: Oral 240 / 240 Output: Urine 625 / 625 Other: Date of Last Bowel Movement 01/17/18 Weight On Admission 88.5 kg Narrative: GENERAL:Awake, alert. Elderly male. SKIN: Warm and dry. Dressing to head - cdi. Scabbed area to L knee/LLE. HEAD: Normocephalic. EYES: No scleral icterus. No injection or drainage. NECK: Supple, trachea midline. No JVD or lymphadenopathy. CARDIOVASCULAR: Bradycardic, mechanical aortic valve. RESPIRATORY: Breath sounds equal bilaterally. No accessory muscle use. GASTROINTESTINAL: Abdomen soft, non-tender, nondistended. MUSCULOSKELETAL: No cyanosis, or edema. Neuro: AO to self but not place or date. Results 01/17/18 11:15 01/17/18 11:15 Cardiac Enzymes 01/16/18 01/16/18 01/17/18 Range/Units 09:40 17:00 11:15 AST 28 (15-37) U/L Troponin I LESS THAN 0.02 L LESS THAN 0.02 L (0.02-0.05) NG/ML Coagulation 01/16/18 01/17/18 Range/Units 09:40 04:17 PT 27.2 H 22.6 H (9.8-11.6) SEC APTT 33.4 H (24.3-30.1) SEC CBC 01/16/18 01/17/18 01/17/18 Range/Units 09:40 04:17 11:15 WBC 4.8 6.5 7.7 (4.0-11.0) TH/MM3 RBC 3.86 L 4.18 L 3.96 L (4.50-5.90) MIL/MM3 Hgb 12.0 L 12.7 L 11.8 L (13.0-17.0) GM/DL Hct 34.4 L 37.3 L 35.3 L (39.0-51.0) % Plt Count 155 161 159 (150-450) TH/MM3 Neut # (Auto) 3.9 5.0 6.6 (1.8-7.7) TH/MM3 Lymph # (Auto) 0.5 L 0.7 L 0.5 L (1.0-4.8) TH/MM3 [place] # (Auto) 0.3 0.5 0.5 (0-0.9) TH/MM3 Eos # (Auto) 0.1 0.2 0.1 (0-0.4) TH/MM3 Baso # (Auto) 0.0 0.0 0.0 (0-0.2) TH/MM3 Comprehensive Metabolic Panel 01/16/18 01/17/18 01/17/18 Range/Units 09:40 04:17 11:15 Sodium 141 141 141 (136-145) MEQ/L Potassium 4.1 3.5 3.9 (3.5-5.1) MEQ/L Chloride 106 106 108 H (98-107) MEQ/L Carbon Dioxide 28.6 25.1 24.9 (21.0-32.0) MEQ/L BUN 21 H 17 17 (7-18) MG/DL Creatinine 0.98 0.87 0.83 (0.60-1.30) MG/DL Calcium 8.4 L 8.1 L 7.9 L (8.5-10.1) MG/DL AST 28 (15-37) U/L ALT 17 (12-78) U/L Alkaline Phosphatase 69 (45-117) U/L Total Protein 5.2 L (6.4-8.2) g/dL Albumin 2.8 L (3.4-5.0) g/dL Intake and Output 01/17/18 01/17/18 01/17/18 06:59 14:59 22:59 Intake Total 240 / 240 Output Total 625 / 625 Balance -385 / -385 Intake: Oral 240 / 240 Output: Urine 625 / 625 Other: Date of Last Bowel Movement 01/17/18 Weight 88.5 kg Weight On Admission 88.5 kg Assessment and Plan - Assessment (1) Bradycardia Code(s): R00.1 - Bradycardia, unspecified Status: Acute (2) Dementia Code(s): F03.90 - Unspecified dementia without behavioral disturbance Status: Acute (3) H/O aortic valve replacement Code(s): Z95.2 - Presence of prosthetic heart valve Status: Acute - Plan Currently resting in bed without distress. SB on monitor. BP stable. He is currently asymptomatic. Will continue to monitor. He may need a pacemaker. Continue coumadin for now. The patient will be evaluated by Dr. Tomlin tomorrow. Code Status: DNR Discussed Condition With: dr Marquez
[2018-01-17] MEDS ORDERED: Warfarin Consult Pharmacy 1 EACH OTHER SCH (19:00)
[2018-01-17] MEDS ORDERED: traZODone 50 MG Tablet PO SCH (21:00)
[2018-01-18] MEDS: Heparin Drip 25,000 UNIT/250 ML BAG IV.CONT PRN (01:49)
[2018-01-18 07:50] LABS: Activated Partial Thrombo Time 40.9 sec (24.3-30.1); INR 1.8 Ratio; Prothrombin Time 18.1 sec (9.8-11.6)
--- NOTE | 2018-01-18 08:37 | P.PN ---
Subjective Interval history: Follow-up syncope. Awaiting cardiology recommendations for pacemaker. INR 1.8 on heparin drip and Coumadin Physical Exam Vital signs: Vital Signs 01/17/18 09:00 01/17/18 11:00 01/17/18 12:00 Temperature 99.4 F Pulse Rate 60 47 L 50 L Respiratory Rate 20 Blood Pressure 121/69 Pulse Oximetry 98 01/17/18 13:00 01/17/18 14:00 01/17/18 15:00 Temperature Pulse Rate 54 L 52 L 53 L Respiratory Rate Blood Pressure Pulse Oximetry 01/17/18 16:00 01/17/18 19:00 01/17/18 19:15 Temperature 97.9 F 98.4 F Pulse Rate 50 L 63 58 L Respiratory Rate 18 18 Blood Pressure 153/77 H 138/64 Pulse Oximetry 96 01/17/18 20:00 01/17/18 20:26 01/17/18 20:33 Temperature 97.7 F Pulse Rate 54 L 53 L Respiratory Rate 20 Blood Pressure 171/87 H Pulse Oximetry 98 98 01/17/18 21:00 01/17/18 22:00 01/17/18 23:00 Temperature Pulse Rate 56 L 52 L 49 L Respiratory Rate Blood Pressure Pulse Oximetry 01/17/18 23:07 01/18/18 00:00 01/18/18 01:00 Temperature 98.0 F Pulse Rate 54 L 69 76 Respiratory Rate 20 Blood Pressure 195/100 H Pulse Oximetry 100 01/18/18 02:00 01/18/18 03:00 01/18/18 03:05 Temperature 98.4 F Pulse Rate 70 72 58 L Respiratory Rate 18 Blood Pressure 138/64 Pulse Oximetry 98 01/18/18 04:00 01/18/18 05:00 01/18/18 06:00 Temperature Pulse Rate 58 L 55 L 50 L Respiratory Rate Blood Pressure Pulse Oximetry Intake & Output 01/17/18 01/18/18 01/18/18 18:59 06:59 18:59 Intake Total 720 / 720 360 / 360 Output Total 1045 / 1045 350 / 350 Balance -325 / -325 Intake: Oral 720 / 720 240 / 240 Other 120 / 120 Output: Urine 1045 / 1045 350 / 350 Other: # Urine Diapers 2 Date of Last Bowel Movement 01/17/18 01/17/18 # Bowel Movements 2 Narrative: GENERAL: This is a well-nourished, well-developed patient, in no apparent distress. SKIN: No rashes, ecchymoses or lesions. Cool and dry. CARDIOVASCULAR: Sinus bradycardia with midsystolic click RESPIRATORY: Clear to auscultation. Breath sounds equal bilaterally. No wheezes , rales, or rhonchi. GASTROINTESTINAL: Abdomen soft, non-tender, nondistended. No guarding. MUSCULOSKELETAL: Extremities without clubbing, cyanosis, or edema. No joint tenderness, effusion, or edema noted. No calf tenderness. Negative Homans sign bilaterally. NEUROLOGICAL: Awake and alert. Cranial nerves II through XII intact. Motor and sensory grossly within normal limits. Five out of 5 muscle strength in all muscle groups. Normal speech. Results - Labs CBC & Chem 7: 01/17/18 11:15 01/17/18 11:15 Laboratory Results - last 24 hr 01/17/18 01/17/18 01/17/18 11:15 11:15 11:15 WBC 7.7 RBC 3.96 L Hgb 11.8 L Hct 35.3 L MCV 89.1 MCH 29.8 MCHC 33.5 RDW 13.9 Plt Count 159 MPV 8.2 Neut % (Auto) 86.4 H Lymph % (Auto) 6.0 L [place] % (Auto) 6.3 Eos % (Auto) 0.7 Baso % (Auto) 0.6 Neut # (Auto) 6.6 Lymph # (Auto) 0.5 L [place] # (Auto) 0.5 Eos # (Auto) 0.1 Baso # (Auto) 0.0 WBC Differential . Differential Comment Auto diff final PT INR APTT Sodium 141 Potassium 3.9 Chloride 108 H Carbon Dioxide 24.9 Anion Gap 8 BUN 17 Creatinine 0.83 Estimated GFR 88 L Random Glucose 111 H Calcium 7.9 L Magnesium 2.3 Total Bilirubin 0.7 AST 28 ALT 17 Alkaline Phosphatase 69 Total Protein 5.2 L Albumin 2.8 L 01/18/18 01/18/18 01:18 07:30 WBC RBC Hgb Hct MCV MCH MCHC RDW Plt Count MPV Neut % (Auto) Lymph % (Auto) [place] % (Auto) Eos % (Auto) Baso % (Auto) Neut # (Auto) Lymph # (Auto) [place] # (Auto) Eos # (Auto) Baso # (Auto) WBC Differential Differential Comment PT 18.1 H INR 1.8 APTT 32.2 H 40.9 H D Sodium Potassium Chloride Carbon Dioxide Anion Gap BUN Creatinine Estimated GFR Random Glucose Calcium Magnesium Total Bilirubin AST ALT Alkaline Phosphatase Total Protein Albumin - Procedures none Assessment and Plan - Plan Symptomatic Bradycardia Status: Acute Plan: Patient with episode recently resulting in the fall with a right wrist fracture. Patient's heart rates been in the mid 40s to low 50s here. He does have a mechanical valve and is on warfarin. Will need cardiac evaluation for possible pacemaker. Continue telemetry (2) Dementia ICD Code: F03.90 - Dementia Status: Chronic Plan: Stable at this time on home regimen of benazepril, multivitamin and vitamin D (3) Hx of aortic valve replacement, mechanical ICD Code: Z95.4 - Hx of aortic valve replacement, mechanical Status: Chronic Plan: Currently on warfarin (goal 3-3.5) Follows up with cardiology Continue heparin drip INR subtherapeutic restarted Coumadin per cardiology 3. Continue home medications for prostatic hyperplasia and hyperlipidemia
[2018-01-18] MEDS: Ezetimibe 10 MG Tablet PO SCH (08:50)
[2018-01-18] MEDS: Furosemide 40 MG Tablet PO SCH (08:51)
--- NOTE | 2018-01-18 15:41 | P.PNCA ---
Subjective Interval history: No CP or SOB, has not been out of bed for 2 days, denies dizziness Physical Exam Vital signs: Vital Signs 01/17/18 16:00 01/17/18 19:00 01/17/18 19:15 Temperature 97.9 F 98.4 F Pulse Rate 50 L 63 58 L Respiratory Rate 18 18 Blood Pressure 153/77 H 138/64 Pulse Oximetry 96 01/17/18 20:00 01/17/18 20:26 01/17/18 20:33 Temperature 97.7 F Pulse Rate 54 L 53 L Respiratory Rate 20 Blood Pressure 171/87 H Pulse Oximetry 98 98 01/17/18 21:00 01/17/18 22:00 01/17/18 23:00 Temperature Pulse Rate 56 L 52 L 49 L Respiratory Rate Blood Pressure Pulse Oximetry 01/17/18 23:07 01/18/18 00:00 01/18/18 01:00 Temperature 98.0 F Pulse Rate 54 L 69 76 Respiratory Rate 20 Blood Pressure 195/100 H Pulse Oximetry 100 01/18/18 02:00 01/18/18 03:00 01/18/18 03:05 Temperature 98.4 F Pulse Rate 70 72 58 L Respiratory Rate 18 Blood Pressure 138/64 Pulse Oximetry 98 01/18/18 04:00 01/18/18 05:00 01/18/18 06:00 Temperature Pulse Rate 58 L 55 L 50 L Respiratory Rate Blood Pressure Pulse Oximetry 01/18/18 07:00 01/18/18 08:00 01/18/18 09:00 Temperature Pulse Rate 52 L 54 L 60 Respiratory Rate Blood Pressure Pulse Oximetry 95 01/18/18 09:53 01/18/18 10:00 01/18/18 10:21 Temperature 98.1 F Pulse Rate 61 68 Respiratory Rate 18 Blood Pressure 114/62 Pulse Oximetry 95 96 01/18/18 11:00 01/18/18 12:00 01/18/18 13:00 Temperature 98.7 F Pulse Rate 54 L 51 L 72 Respiratory Rate 16 Blood Pressure 138/70 Pulse Oximetry 99 01/18/18 14:00 Temperature Pulse Rate 50 L Respiratory Rate Blood Pressure Pulse Oximetry Intake & Output 01/17/18 01/18/18 01/18/18 18:59 06:59 18:59 Intake Total 720 / 720 360 / 360 Output Total 1045 / 1045 350 / 350 Balance -325 / -325 Intake: Oral 720 / 720 240 / 240 Other 120 / 120 Output: Urine 1045 / 1045 350 / 350 Other: # Urine Diapers 2 Date of Last Bowel Movement 01/17/18 01/17/18 # Bowel Movements 2 - Constitutional no acute distress - Routine Cardiovascular Exam Present: RRR, murmur - Routine Abdominal Exam Present: soft - Routine Extremities Exam Absent: edema - Routine Neurological Exam mildly confused Assessment and Plan - Assessment (1) Bradycardia Code(s): R00.1 - Bradycardia, unspecified Status: Acute (2) HTN (hypertension) Code(s): I10 - Essential (primary) hypertension Status: Acute (3) H/O aortic valve replacement Code(s): Z95.2 - Presence of prosthetic heart valve Status: Acute (4) Orthostatic hypotension Code(s): I95.1 - Orthostatic hypotension Status: Acute (5) Dementia Code(s): F03.90 - Unspecified dementia without behavioral disturbance Status: Acute - Plan No hypotension, but has not been out of bed. Tele with mild bradycardia. Continue warfarin; s/p AVR. No indication for permanent pacemaker at this point. Increase activity, PT. Discontinue Trazodone. D/w pt's .
[2018-01-19] MEDS: Heparin Drip 25,000 UNIT/250 ML BAG IV.CONT PRN (05:42)
[2018-01-19 06:36] LABS: Activated Partial Thrombo Time 60.5 sec (24.3-30.1); INR 1.8 Ratio; Prothrombin Time 18.5 sec (9.8-11.6)
[2018-01-19] MEDS: Furosemide 40 MG Tablet PO SCH (08:45)
[2018-01-19] MEDS: Ezetimibe 10 MG Tablet PO SCH (08:45)
--- NOTE | 2018-01-19 10:52 | P.PN ---
Subjective Interval history: Follow up for bradycardia, syncope. Patient is currently doing well. On room air. Denies any chest pain, shortness of breath, fever or chills. Physical Exam Vital signs: Vital Signs 01/18/18 11:00 01/18/18 12:00 01/18/18 13:00 Temperature 98.7 F Pulse Rate 54 L 51 L 72 Respiratory Rate 16 Blood Pressure 138/70 Pulse Oximetry 99 01/18/18 14:00 01/18/18 15:00 01/18/18 16:00 Temperature 98.2 F Pulse Rate 50 L 53 L 56 L Respiratory Rate 16 Blood Pressure 157/92 H Pulse Oximetry 97 01/18/18 17:00 01/18/18 18:00 01/18/18 19:00 Temperature Pulse Rate 64 60 59 L Respiratory Rate Blood Pressure Pulse Oximetry 01/18/18 20:00 01/18/18 20:24 01/18/18 21:00 Temperature 97.7 F Pulse Rate 54 L 62 60 Respiratory Rate 18 Blood Pressure 152/86 H Pulse Oximetry 98 01/18/18 22:00 01/18/18 23:00 01/18/18 23:29 Temperature 96.9 F L Pulse Rate 74 93 H 71 Respiratory Rate 18 Blood Pressure 164/95 H Pulse Oximetry 97 01/19/18 00:02 01/19/18 01:00 01/19/18 02:00 Temperature Pulse Rate 73 73 50 L Respiratory Rate Blood Pressure Pulse Oximetry 01/19/18 03:00 01/19/18 04:00 01/19/18 04:12 Temperature 97.4 F L Pulse Rate 74 82 66 Respiratory Rate 18 Blood Pressure 151/76 H Pulse Oximetry 97 01/19/18 05:00 01/19/18 06:00 01/19/18 07:00 Temperature 97.8 F Pulse Rate 65 86 98 H Respiratory Rate 18 Blood Pressure 124/73 Pulse Oximetry 95 01/19/18 08:00 01/19/18 09:00 01/19/18 10:00 Temperature Pulse Rate 62 60 68 Respiratory Rate Blood Pressure Pulse Oximetry 01/19/18 10:34 Temperature Pulse Rate Respiratory Rate Blood Pressure Pulse Oximetry 95 Intake & Output 01/18/18 01/19/18 01/19/18 18:59 06:59 18:59 Intake Total 600 / 600 600 / 600 Output Total 1200 / 1200 320 / 320 Balance -600 / -600 280 / 280 Weight 87 kg Intake: IV 250 / 250 Heparin/D5W 25,000 U/250 mL 25, 250 / 250 000 unit In 250 ml @ Per Protocol IV.CONT TITRATE PRN Rx #:[id number] Oral 600 / 600 350 / 350 Output: Urine 1200 / 1200 320 / 320 Other: # Voids 1 # Urine Diapers 1 Date of Last Bowel Movement 01/19/18 01/18/18 # Bowel Movements 1 Narrative: GENERAL: Alert, oriented 3, NAD. SKIN: Warm and dry. HEAD: Normocephalic. EYES: No scleral icterus. No injection or drainage. NECK: Supple, trachea midline. No JVD or lymphadenopathy. CARDIOVASCULAR: Regular rate and rhythm without gallops, or rubs. Systolic murmur appreciated on the right sternal border, ejection click appreciated. RESPIRATORY: Breath sounds equal bilaterally. No accessory muscle use. GASTROINTESTINAL: Abdomen soft, non-tender, nondistended. MUSCULOSKELETAL: No cyanosis, or edema. BACK: Nontender without obvious deformity. No CVA tenderness. Results - Labs CBC & Chem 7: 01/17/18 11:15 01/17/18 11:15 Laboratory Results - last 24 hr 01/18/18 01/18/18 01/19/18 13:41 21:45 06:02 PT 18.5 H INR 1.8 APTT 57.6 H D 40.9 H D 60.5 H D - Procedures none Assessment and Plan - Assessment (1) Bradycardia Code(s): R00.1 - Bradycardia, unspecified Status: Acute (2) H/O aortic valve replacement Code(s): Z95.2 - Presence of prosthetic heart valve Status: Acute - Plan Mr. Larkin is a pleasant 82-year-old male with a history of aortic valve replacement on warfarin who presented to the emergency department on 2017 after he passed out at breakfast time. On arrival his INR was 2.7. He was admitted for symptomatic bradycardia versus medication overdose. Cardiology was consulted Syncope Symptomatic bradycardia -Cardiology evaluated patient - recommends no permanent pacemaker at this point. -Trazodone discontinued -Patient's heart rate is in the 60s now. History of aortic valve replacement (Mechanical) -Continue warfarin. INR is 1.8. Goal 2.5 - 3.5. -Will discuss with Dr. Tomlin regarding addition of Aspirin and discontinuation of Heparin. Dementia - continue Donepezil. Full code. Warfarin INR 1.8 today.
--- NOTE | 2018-01-19 14:58 | P.PNCA ---
Subjective Interval history: Resting, walking in the halls with PT earlier, no CP or excessive SOB Physical Exam Vital signs: Vital Signs 01/18/18 15:00 01/18/18 16:00 01/18/18 17:00 Temperature 98.2 F Pulse Rate 53 L 56 L 64 Respiratory Rate 16 Blood Pressure 157/92 H Pulse Oximetry 97 01/18/18 18:00 01/18/18 19:00 01/18/18 20:00 Temperature Pulse Rate 60 59 L 54 L Respiratory Rate Blood Pressure Pulse Oximetry 01/18/18 20:24 01/18/18 21:00 01/18/18 22:00 Temperature 97.7 F Pulse Rate 62 60 74 Respiratory Rate 18 Blood Pressure 152/86 H Pulse Oximetry 98 01/18/18 23:00 01/18/18 23:29 01/19/18 00:02 Temperature 96.9 F L Pulse Rate 93 H 71 73 Respiratory Rate 18 Blood Pressure 164/95 H Pulse Oximetry 97 01/19/18 01:00 01/19/18 02:00 01/19/18 03:00 Temperature Pulse Rate 73 50 L 74 Respiratory Rate Blood Pressure Pulse Oximetry 01/19/18 04:00 01/19/18 04:12 01/19/18 05:00 Temperature 97.4 F L Pulse Rate 82 66 65 Respiratory Rate 18 Blood Pressure 151/76 H Pulse Oximetry 97 01/19/18 06:00 01/19/18 07:00 01/19/18 08:00 Temperature 97.8 F Pulse Rate 86 98 H 62 Respiratory Rate 18 Blood Pressure 124/73 Pulse Oximetry 95 01/19/18 09:00 01/19/18 10:00 01/19/18 10:34 Temperature Pulse Rate 60 68 Respiratory Rate Blood Pressure Pulse Oximetry 95 01/19/18 11:00 01/19/18 12:00 01/19/18 13:00 Temperature 97.2 F L Pulse Rate 62 62 69 Respiratory Rate 18 Blood Pressure 100/53 L Pulse Oximetry 98 01/19/18 14:00 Temperature Pulse Rate 55 L Respiratory Rate Blood Pressure Pulse Oximetry Intake & Output 01/18/18 01/19/18 01/19/18 18:59 06:59 18:59 Intake Total 600 / 600 600 / 600 139 / 139 Output Total 1200 / 1200 320 / 320 Balance -600 / -600 280 / 280 139 / 139 Weight 191 lb 12.835 oz Intake: IV 250 / 250 139 / 139 Heparin/D5W 25,000 U/250 mL 25, 250 / 250 139 / 139 000 unit In 250 ml @ Per Protocol IV.CONT TITRATE PRN Rx #:[id number] Oral 600 / 600 350 / 350 Output: Urine 1200 / 1200 320 / 320 Other: # Voids 1 # Urine Diapers 1 Date of Last Bowel Movement 01/19/18 01/18/18 # Bowel Movements 1 - Constitutional no acute distress - Routine Respiratory Exam Present: CTA bilaterally - Routine Cardiovascular Exam Present: RRR - Routine Abdominal Exam Present: soft - Routine Extremities Exam Absent: edema - Routine Psychiatric Exam Present: normal affect Assessment and Plan - Assessment (1) Bradycardia Code(s): R00.1 - Bradycardia, unspecified Status: Acute (2) HTN (hypertension) Code(s): I10 - Essential (primary) hypertension Status: Acute (3) H/O aortic valve replacement Code(s): Z95.2 - Presence of prosthetic heart valve Status: Acute (4) Orthostatic hypotension Code(s): I95.1 - Orthostatic hypotension Status: Acute (5) Dementia Code(s): F03.90 - Unspecified dementia without behavioral disturbance Status: Acute - Plan No recurrent significant bradycardia or hypotension. Tele with mild bradycardia. Continue warfarin, adjust dose, INR 1.8; s/p AVR. No indication for permanent pacemaker at this point. Increase activity, PT. Stay off Trazodone. D/w pt's .
[2018-01-19] MEDS: hydrALAZINE HCl Inj 20 MG/ML Vial IV.PUSH PRN (23:22)
[2018-01-20 05:42] LABS: Activated Partial Thrombo Time 31.5 sec (24.3-30.1); INR 1.8 Ratio; Prothrombin Time 18.7 sec (9.8-11.6)
[2018-01-20] MEDS: Furosemide 40 MG Tablet PO SCH (08:38)
[2018-01-20] MEDS: Ezetimibe 10 MG Tablet PO SCH (08:38)
--- NOTE | 2018-01-20 10:53 | P.DS ---
Date of admission: 01/16/18 12:36 Primary care physician: No Primary Care Physician Brief History from admission: This patient is a 82-year-old gentleman with a history of valve replacement on warfarin comes in after passing out at breakfast. Patient is demented and his is at the bedside and gives a history that while he was at breakfast he passed out over his meal and the nursing staff at the assisted living called [phone]. He had his pulse checked his heart rate was quite low. Patient was breathing and there was no altered mental status. Patient says that he went to sleep. Patient also admits an episode of "falling out" recently and fracturing his right wrist 11/2017 and with HR in the low 60s. No she denies chest pain or shortness of breath. The is at the bedside and says that he was recently prescribed trazodone and the dose had been doubled the night before today's incident. He had previously been taken off the Klonopin due to multiple side effects. Patient notes no new complaints but his dementia is moderate to severe patient does have a mechanical valve and has been on warfarin. His checks his warfarin with her personal monitoring kit and noted that his levels have been erratic. His INR today is 2.7. Patient's been admitted to the hospital for further evaluation of possible symptomatic bradycardia versus medication overdose. DS: Diagnosis - Discharge Diagnosis (1) Bradycardia Status: Acute (2) H/O aortic valve replacement Status: Acute DS: Medications - Discharge Medications Prescriptions: aspirin 81 mg PO DAILY 90 Days #90 tab DS: Summary Hospital Course: Mr. Larkin is a pleasant 82-year-old male with a history of aortic valve replacement on warfarin who presented to the emergency department on 2017 after he passed out at breakfast time. On arrival his INR was 2.7. He was admitted for symptomatic bradycardia versus medication overdose. Cardiology was consulted Syncope Symptomatic bradycardia -Cardiology evaluated patient - recommends no permanent pacemaker at this point. -Trazodone discontinued -Patient's heart rate is in the 60s now. History of aortic valve replacement (Mechanical) -Continue warfarin. INR is 1.8. Goal 2.5 - 3.5. -After discussing with Dr. Tomlin, heparin was discontinued and Low dose aspirin was initiated. -Patient was given Rx to obtain INR soon after discharge. Dementia - continue Donepezil. Full code. Warfarin INR 1.8. Patient received 10mg of Warfarin. INR to be checked within 1-2 days after discharge. - Time Spent with Patient Total time spent providing and/or coordinating discharge services: Exam Vital signs: Vital Signs 01/19/18 11:00 01/19/18 12:00 01/19/18 13:00 Temperature 97.2 F L Pulse Rate 62 62 69 Respiratory Rate 18 Blood Pressure 100/53 L Pulse Oximetry 98 01/19/18 14:00 01/19/18 15:00 01/19/18 16:00 Temperature 97.6 F Pulse Rate 55 L 60 56 L Respiratory Rate 18 Blood Pressure 147/81 H Pulse Oximetry 98 01/19/18 17:00 01/19/18 18:00 01/19/18 19:00 Temperature 98.1 F Pulse Rate 59 L 83 58 L Respiratory Rate 22 Blood Pressure Pulse Oximetry 98 01/19/18 20:00 01/19/18 21:00 01/19/18 22:00 Temperature Pulse Rate 58 L 52 L 80 Respiratory Rate Blood Pressure Pulse Oximetry 98 01/19/18 23:00 01/20/18 00:00 01/20/18 02:00 Temperature 98.5 F Pulse Rate 64 55 L 58 L Respiratory Rate 18 Blood Pressure 167/9 H Pulse Oximetry 01/20/18 03:00 01/20/18 04:00 01/20/18 05:00 Temperature 98.2 F Pulse Rate 59 L 61 62 Respiratory Rate 18 Blood Pressure 124/67 Pulse Oximetry 01/20/18 06:00 01/20/18 07:00 01/20/18 08:00 Temperature 97.9 F Pulse Rate 73 49 L 69 Respiratory Rate 16 Blood Pressure 139/72 Pulse Oximetry 97 01/20/18 10:39 Temperature Pulse Rate Respiratory Rate Blood Pressure Pulse Oximetry 96 Intake & Output 01/19/18 01/20/18 01/20/18 18:59 06:59 18:59 Intake Total 779 / 779 Output Total 1235 / 1235 550 / 550 Balance -456 / -456 -550 / -550 Weight 88.3 kg Intake: IV 139 / 139 Heparin/D5W 25,000 U/250 mL 25, 139 / 139 000 unit In 250 ml @ Per Protocol IV.CONT TITRATE PRN Rx #:[id number] Oral 640 / 640 Output: Urine 1235 / 1235 550 / 550 Stool 0 / 0 Other: Date of Last Bowel Movement 01/18/18 01/18/18 Results Procedures completed during hospitalization: none Labs on day of discharge: Labs from last 24 hours 01/20/18 04:53 PT 18.7 H INR 1.8 APTT 31.5 H D Discharge Plan - Discharge Disposition Patient Disposition: 03 Discharge to SNF - Discharge Condition Condition: Fair - Discharge Order Discharge Orders: Discharge Order (Routine); Ordered 01/20/18 Ordered By: Isra Jaime - Discharge Details Anticipated Discharge Date: 01/20/18 - Physicians Team Primary Care Provider: Primary Care Gilma Gilmore Attending Provider: Isra Jaime Other Providers: Ryan Marquez MD - Rxs /Orders / Referrals /Forms Prescriptions: New aspirin 81 mg Tablet,Delayed Release (Dr/Ec) 81 mg PO DAILY 90 Days Qty: 90 RF: 3 warfarin [Coumadin] 5 mg Tablet 5 mg PO Tu@1600 RF: 0 warfarin [Coumadin] 7.5 mg Tablet 7.5 mg PO SuMoWeThFrSa@1600 RF: 0 Continue cholecalciferol (vitamin D3) [Vitamin D3] 5,000 unit Tablet 5,000 unit PO DAILY donepezil 5 mg Tablet 5 mg PO DAILY ezetimibe [Zetia] 10 mg Tablet PO DAILY furosemide 40 mg Tablet 40 mg PO DAILY One-A-Day Men's Multivitamin PO DAILY potassium chloride 10 mEq Tablet,Er Particles/Crystals 10 meq PO DAILY tamsulosin 0.4 mg Capsule,Extended Release 24hr 0.4 mg PO DAILY Tylenol Extra Strength 500 mg PO PRN Discontinued clonazepam 0.5 mg Tablet trazodone 50 mg Tablet 50 mg PO DAILY Ambulatory Orders / Order Sets / DME: Prothrombin Time INR (Routine) Timeframe: 1 Day Location: Determined by Patient Ordered By: Isra Jaime Referrals: Primary Care Gilma Gilmore [Primary Care Provider] - See Instructions - Discharge Instructions Additional Instructions: Check INR daily until therapeutic between 2-3.[address] Tomlin
--- NOTE | 2018-01-20 12:23 | P.PNCA ---
Subjective Interval history: No CP or SOB, feels better, bradycardia improved, INR 1.8 Physical Exam Vital signs: Vital Signs 01/19/18 13:00 01/19/18 14:00 01/19/18 15:00 Temperature 97.6 F Pulse Rate 69 55 L 60 Respiratory Rate 18 Blood Pressure 147/81 H Pulse Oximetry 98 01/19/18 16:00 01/19/18 17:00 01/19/18 18:00 Temperature Pulse Rate 56 L 59 L 83 Respiratory Rate Blood Pressure Pulse Oximetry 01/19/18 19:00 01/19/18 20:00 01/19/18 21:00 Temperature 98.1 F Pulse Rate 58 L 58 L 52 L Respiratory Rate 22 Blood Pressure Pulse Oximetry 98 98 01/19/18 22:00 01/19/18 23:00 01/20/18 00:00 Temperature 98.5 F Pulse Rate 80 64 55 L Respiratory Rate 18 Blood Pressure 167/9 H Pulse Oximetry 01/20/18 02:00 01/20/18 03:00 01/20/18 04:00 Temperature 98.2 F Pulse Rate 58 L 59 L 61 Respiratory Rate 18 Blood Pressure 124/67 Pulse Oximetry 01/20/18 05:00 01/20/18 06:00 01/20/18 07:00 Temperature 97.9 F Pulse Rate 62 73 49 L Respiratory Rate 16 Blood Pressure 139/72 Pulse Oximetry 97 01/20/18 08:00 01/20/18 09:00 01/20/18 10:39 Temperature Pulse Rate 69 70 Respiratory Rate Blood Pressure Pulse Oximetry 96 01/20/18 10:50 01/20/18 11:00 01/20/18 11:50 Temperature 97.6 F Pulse Rate 62 61 67 Respiratory Rate 18 Blood Pressure 97/53 L Pulse Oximetry 98 Intake & Output 01/19/18 01/20/18 01/20/18 18:59 06:59 18:59 Intake Total 779 / 779 Output Total 1235 / 1235 550 / 550 Balance -456 / -456 -550 / -550 Weight 194 lb 10.691 oz Intake: IV 139 / 139 Heparin/D5W 25,000 U/250 mL 25, 139 / 139 000 unit In 250 ml @ Per Protocol IV.CONT TITRATE PRN Rx #:[id number] Oral 640 / 640 Output: Urine 1235 / 1235 550 / 550 Stool 0 / 0 Other: Date of Last Bowel Movement 01/18/18 01/20/18 - Constitutional no acute distress - Routine Respiratory Exam Present: CTA bilaterally - Routine Cardiovascular Exam Present: RRR - Routine Abdominal Exam Present: soft - Routine Extremities Exam Absent: edema - Routine Neurological Exam Present: alert - Routine Psychiatric Exam Present: normal affect Assessment and Plan - Assessment (1) Bradycardia Code(s): R00.1 - Bradycardia, unspecified Status: Acute (2) HTN (hypertension) Code(s): I10 - Essential (primary) hypertension Status: Acute (3) H/O aortic valve replacement Code(s): Z95.2 - Presence of prosthetic heart valve Status: Acute (4) Orthostatic hypotension Code(s): I95.1 - Orthostatic hypotension Status: Acute (5) Dementia Code(s): F03.90 - Unspecified dementia without behavioral disturbance Status: Acute - Plan Bradycardia improved. INR subtx, adjust warfarin dose. Monitor INR daily until stable. No indication for permanent pacemaker at this point. Stay off Trazodone. Transfer to SNF today as planned. D/w pt and .
== END 2018-01-20 14:14 ==
LOC: PHEDA 12:36 → HCIS 15:01
PROVIDERS: ADMIT Hospitalist; ATTEND Hospitalist